=== PATIENT | male | born 1955 | race Two or more races ===

== ENCOUNTER 2018-06-18 18:51 | Inpatient (IN) | payer MEDICARE, MEDICAID ==
--- NOTE | 2018-06-18 19:16 | ED Physician Chart ---
ED Chief Complaint/HPI - Patient Information Date Seen:: 06/18/18 Time Seen:: 19:05 Chief Complaint:: increased agitation and psychosis History of Present Illness:: She was sent here for possible admission to [facility] because of increased agitation and psychosis at his [facility] facility. Allergies:: Allergies Allergy/AdvReac Type Severity Reaction Status Date / Time No Known Allergies Allergy Verified 06/18/18 18:59 Vitals:: Vital Signs - 8 hr 06/18/18 18:59 Temp 97.4 F HR 81 RR 22 BP 117/61 O2 Sat % 98 Historian:: Patient Review:: Transfer documents Reviewed ED Review of Systems - Review of Systems General/Constitutional: No fever, No chills, No weight loss, No weakness, No diaphoresis, No edema, No loss of appetite Skin: No skin lesions, No rash, No bruising Head: No headache, No light-headedness Eyes: No loss of vision, No pain, No diplopia ENT: No earache, No nasal drainage, No sore throat, No tinnitus Neck: No neck pain, No swelling, No thyromegaly, No stiffness, No mass noted Cardio Vascular: No chest pain, No palpitations, No PND, No orthopnea, No edema Pulmonary: No SOB, No cough, No sputum, No wheezing GI: No nausea, No vomiting, No diarrhea, No pain, No melena, No hematochezia, No constipation, No hematemesis G/U: No dysuria, No frequency, No hematuria Musculoskeletal: No bone or joint pain, No back pain, No muscle pain Endocrine: No polyuria, No polydipsia Psychiatric: Prior psych history, No depression, No anxiety, No suicidal ideation Hematopoietic: No bruising, No lymphadenopathy Allergic/Immuno: No urticaria, No angioedema Neurological: No syncope, No focal symptoms, No weakness, No paresthesia, No headache, No seizure, No dizziness, No confusion, No vertigo ED Past Medical History - Past Medical History Past Medical History: HTN, DM, Dyslipidemia, PUD/GERD, Other (end-stage renal disease on dialysis; atrial fibrillation hepatitis C; ischemic encephalopathy; anemia) Family History: HTN Social History: Non Smoker, No Alcohol Surgical History: other (dialysis shot) Psychiatricy History: Other (ischemic encephalopathy) Family Medical History - Family Member Mother History Unknown: Yes ED Physical Exam - Physical Examination General/Constitutional: Awake, Well-developed, well-nourished, Alert Other Gen/Cons comments:: Patient is alert and oriented to the correct year but states it is May 18. Head: Atraumatic Eyes: Lids, conjuctiva normal, PERRL Skin: Nl inspection, No rash, No skin lesions, No ecchymosis ENMT: External ears, nose nl, Oropharynx nl Other ENMT comments:: Edentulous Neck: No nuchal rigidity Respiratory: Nl effort/Exclusion, Clear to Auscultation Other Cardio Vascular comments:: Irregularly irregular rhythm with a 2/6 systolic murmur GI: No tenderness/rebounding/guarding, No organomegaly, No hernia, Normal BS's : No CVA tenderness Extremities: Normal digits & nails ED Labs/Radiology/EKG Results - Lab Results Results: Laboratory Results WBC 7.7 Th/cmm (4.8-10.8) 06/18/18 19:20 RBC 3.23 Mil/cmm (4.30-5.70) L 06/18/18 19:20 Hgb 10.6 gm/dL (12-16) L 06/18/18 19:20 Hct 31.4 % (41.0-60) L 06/18/18 19:20 MCV 97.5 fl (80-99) 06/18/18 19:20 MCH 32.8 pg (26.0-30.0) H 06/18/18 19:20 MCHC Differential 33.7 pg (28.0-36.0) 06/18/18 19:20 RDW 12.6 % (11.5-20.0) 06/18/18 19:20 Plt Count 195 Th/cmm (150-400) 06/18/18 19:20 MPV 6.4 fl 06/18/18 19:20 Neutrophils % 58.7 % (40.0-80.0) 06/18/18 19:20 Lymphocytes % 23.2 % (20.0-50.0) 06/18/18 19:20 Monocytes % 10.7 % (2.0-10.0) H 06/18/18 19:20 Eosinophils % 6.4 % (0.0-5.0) H 06/18/18 19:20 Basophils % 1.0 % (0.0-2.0) 06/18/18 19:20 Sodium 129 mEq/L (136-145) L 06/18/18 19:20 Potassium 4.0 mEq/L (3.5-5.1) 06/18/18 19:20 Chloride 90 mEq/L (98-107) L 06/18/18 19:20 Carbon Dioxide 28.0 mEq/L (21.0-31.0) 06/18/18 19:20 Anion Gap 15.0 (7.0-16.0) 06/18/18 19:20 BUN 27 mg/dL (7-25) H 06/18/18 19:20 Creatinine 6.4 mg/dL (0.7-1.3) H* 06/18/18 19:20 Est GFR ( Amer) 11.4 ml/min (>90) 06/18/18 19:20 Est GFR (Non-Af Amer) 9.4 ml/min 06/18/18 19:20 BUN/Creatinine Ratio 4.2 06/18/18 19:20 Glucose 166 mg/dL (70-105) H 06/18/18 19:20 Calcium 9.5 mg/dL (8.6-10.3) 06/18/18 19:20 Total Bilirubin 0.4 mg/dL (0.3-1.0) 06/18/18 19:20 AST 15 U/L (13-39) 06/18/18 19:20 ALT 19 U/L (7-52) 06/18/18 19:20 Alkaline Phosphatase 144 U/L (34-104) H 06/18/18 19:20 Total Protein 7.2 gm/dL (6.0-8.3) 06/18/18 19:20 Albumin 4.2 gm/dL (4.2-5.5) 06/18/18 19:20 Globulin 3.0 gm/dL 06/18/18 19:20 Albumin/Globulin Ratio 1.4 (1.0-1.8) 06/18/18 19:20 Triglycerides 131 mg/dL (<150) 06/18/18 19:20 Cholesterol 72 mg/dL (<200) 06/18/18 19:20 LDL Cholesterol Direct 28 mg/dL (75-193) L 06/18/18 19:20 HDL Cholesterol 24 mg/dL (23-92) 06/18/18 19:20 Salicylates < 25.0 mg/L (30.0-100.0) L 06/18/18 19:20 Acetaminophen < 10.0 ug/mL (10.0-30.0) L 06/18/18 19:20 Ethyl Alcohol < 10 mg/dL (0-10) 06/18/18 19:20 - EKG Interpretations Rate & Rhythm: atrial fibrillation with a rate of 71 [place]: borderline left axis deviation ED Septic Shock - . Is Septic Shock (SBP<90, OR Lactate>4 mmol\L) present?: No - <6hrs of presentation: Vital Signs: Vital Signs - 8 hr 06/18/18 18:59 Temp 97.4 F HR 81 RR 22 BP 117/61 O2 Sat % 98 ED Reassessment (Disposition) - Reassessment Reassessment Condition:: Unchanged - Diagnosis Diagnosis:: Increased agitation; renal failure on dialysis; atrial fibrillation with controlled ventricular rate; history of hepatitis C; history of ischemic encephalopathy - Patient Disposition Admitted to:: [facility] Admitting Medical Physician:: Yadi Mercedes Admitting Psych Physician:: Reid Wan Condition at Disposition:: Stable, Unchanged
[2018-06-18 19:30] LABS: % EOSINOPHILS 6.4 % (0.0-5.0); % LYMPHOCYTES 23.2 % (20.0-50.0); % MONOCYTES 10.7 % (2.0-10.0); % NEUTROPHILS 58.7 % (40.0-80.0); BASOPHILE ABSOLUTE 0.1 Th/cumm (0-0.2); EOSINOPHILE ABSOLUTE 0.5 Th/cmm (0.1-0.4); HEMATOCRIT 31.4 % (41.0-60); HEMOGLOBIN 10.6 gm/dL (12-16); LYMPHOCYTE ABSOLUTE 1.8 Th/cmm (1.5-3.0); MEAN CELL VOLUME 97.5 fl (80-99); MEAN CORPUSCULAR HEMOGLOBIN 32.8 pg (26.0-30.0); MEAN CORPUSCULAR HGB CONC 33.7 pg (28.0-36.0); MEAN PLATELET VOLUME 6.4 fl; MONOCYTE ABSOLUTE 0.8 Th/cmm (0.3-1.0); NEUTROPHILE ABSOLUTE 4.5 Th/cmm (1.8-8.0); PLATELET COUNT 195 Th/cmm (150-400); RED BLOOD COUNT 3.23 Mil/cmm (4.30-5.70); RED CELL DISTRIBUTION WIDTH 12.6 % (11.5-20.0); WHITE BLOOD COUNT 7.7 Th/cmm (4.8-10.8)
[2018-06-18 19:45] LABS: ACETAMINOPHEN < 10.0 ug/mL (10.0-30.0); ALB/GLOB RATIO 1.4 (1.0-1.8); ALBUMIN 4.2 gm/dL (4.2-5.5); ALKALINE PHOSPHATASE 144 U/L (34-104); BILIRUBIN,TOTAL 0.4 mg/dL (0.3-1.0); BUN - UREA NITROGEN 27 mg/dL (7-25); CALCIUM SERUM 9.5 mg/dL (8.6-10.3); CHLORIDE 90 mEq/L (98-107); CHOLESTEROL 72 mg/dL (<200); GFR AFRICAN-AMERICAN 11.4 ml/min (>90); GFR NON AFRICAN-AMERICAN 9.4 ml/min; GLUCOSE 166 mg/dL (70-105); HDL -HIGH DENSITY LIPOPROTEIN 24 mg/dL (23-92); SGOT 15 U/L (13-39); SGPT/ALT 19 U/L (7-52); SODIUM SERUM 129 mEq/L (136-145); TOTAL PROTEIN,SERUM 7.2 gm/dL (6.0-8.3); TRIGLYCERIDES 131 mg/dL (<150)
[2018-06-18 19:49] LABS: CREATININE - SERUM 6.4 mg/dL (0.7-1.3); SALICYLATES (ASPIRIN) < 25.0 mg/L (30.0-100.0)
[2018-06-18 21:38] VITALS: BP 125/72
[2018-06-18] MEDS ORDERED: Dextrose 50% 50 mL Abboject IVP PRN (22:05)
[2018-06-18] MEDS ORDERED: GLUCAGON HCl 1 MG KIT IM PRN (22:05)
[2018-06-19] MEDS: INSULIN LISPRO SLIDING SCALE 100 UNITS/ML UNIT SUBQ SCH ×4 (06:52→21:18)
[2018-06-19 06:54] LABS: % EOSINOPHILS 6.1 % (0.0-5.0); % LYMPHOCYTES 19.8 % (20.0-50.0); % MONOCYTES 9.2 % (2.0-10.0); % NEUTROPHILS 63.9 % (40.0-80.0); BASOPHILE ABSOLUTE 0.1 Th/cumm (0-0.2); EOSINOPHILE ABSOLUTE 0.5 Th/cmm (0.1-0.4); HEMOGLOBIN 10.9 gm/dL (12-16); LYMPHOCYTE ABSOLUTE 1.5 Th/cmm (1.5-3.0); MEAN CELL VOLUME 96.2 fl (80-99); MEAN CORPUSCULAR HEMOGLOBIN 32.8 pg (26.0-30.0); MEAN CORPUSCULAR HGB CONC 34.1 pg (28.0-36.0); MONOCYTE ABSOLUTE 0.7 Th/cmm (0.3-1.0); NEUTROPHILE ABSOLUTE 4.9 Th/cmm (1.8-8.0); PLATELET COUNT 172 Th/cmm (150-400); RED BLOOD COUNT 3.33 Mil/cmm (4.30-5.70); RED CELL DISTRIBUTION WIDTH 12.8 % (11.5-20.0); WHITE BLOOD COUNT 7.7 Th/cmm (4.8-10.8)
[2018-06-19 07:15] LABS: ANION GAP 15.4 (7.0-16.0); CALCIUM SERUM 9.7 mg/dL (8.6-10.3); CARBON DIOXIDE 27.9 mEq/L (21.0-31.0); GFR AFRICAN-AMERICAN 9.2 ml/min (>90); GFR NON AFRICAN-AMERICAN 7.6 ml/min; POTASSIUM SERUM 4.3 mEq/L (3.5-5.1)
[2018-06-19 08:38] LABS: CREATININE - SERUM 7.7 mg/dL (0.7-1.3)
[2018-06-19] MEDS ORDERED: Non-Formulary Item 1 EA (Carvedilol [Carvedilol] 25 MG) PO SCH (09:00)
[2018-06-19] MEDS ORDERED: Non-Formulary Item 1 EA (Cholecalciferol (Vitamin D3) [Vitamin D3] 1 CAP) PO SCH (09:00)
[2018-06-19] MEDS ORDERED: INSULIN DETEMIR 30 UNIT SQ SCH (09:00)
[2018-06-19] MEDS ORDERED: Non-Formulary Item 1 EA (Acetaminophen [Tylenol] 650 MG) PO SCH (09:00)
[2018-06-19] MEDS: Fish Oil 1,000 MG SGL PO SCH (09:41)
[2018-06-19] MEDS: Diltiazem CD 120 mg 24H PO SCH (09:41)
[2018-06-19] MEDS: Insulin Glargine 100 units/ml 10ml Vial SUBQ SCH (09:42)
--- NOTE | 2018-06-19 19:03 | History & Physical ---
ADMIT DATE: 06/19/2018 CHIEF COMPLAINT: Increasing agitation. HISTORY OF PRESENT ILLNESS: This is a 63-year-old male who was originally admitted from a senior living facility and was transferred to [facility] Emergency Room due to increase in agitation and psychosis and hence the patient was possibly transferred to senior Mental Health Unit, but unfortunately did not take dialysis. So, the patient was admitted to Med/Surg unit. REVIEW OF SYSTEMS: GENERAL: This is a 63-year-old male. No fever, no weakness, no headache, no dizziness. EYES: No eye pain, no blurring vision. NECK: No neck pain or nuchal rigidity. CHEST: No chest pain or palpitation. PULMONARY: No coughing. No shortness of breath. GASTROINTESTINAL: No abdominal pain, no constipation or diarrhea. MUSCULOSKELETAL: No joint pain. No muscle pain. SOCIAL HISTORY: The patient lives in a senior living facility prior to hospitalization. FAMILY HISTORY: Unremarkable. PAST SURGICAL HISTORY: Unremarkable. PSYCHIATRIC HISTORY: Includes psychosis. PAST MEDICAL HISTORY: Includes hypertension, atrial fibrillation, hyperlipidemia, vitamin D deficiency, gastroesophageal reflux disease, neuropathy, diabetes. PHYSICAL EXAMINATION: VITAL SIGNS: Temperature 97.2, heart rate 69, blood pressure 136/68, respiration 18, 99% on room air. GENERAL: This is a 63-year-old male that appears as stated in no acute distress. HEENT: Head is atraumatic, normocephalic. Eyes: Bilateral conjunctivae are clear. Bilateral pupils equal, round, reactive. NECK: Supple. No JVD. CARDIOVASCULAR: S1 and S2 without murmur. LUNGS: Clear to auscultation. GASTROINTESTINAL: Soft and nontender without guarding. Positive bowel sounds. MUSCULOSKELETAL: No clubbing. No cyanosis noted. ASSESSMENT: 1. Psychosis. 2. End-stage renal disease, hemodialysis dependent. 3. Hypertension. 4. Hyperlipidemia. 5. Atrial fibrillation. 6. Diabetes. PLAN: We will admit the patient to Psychiatric Unit. We will do medication reconciliation accordingly. We will consult with payment analyst and a psychiatrist. Treatment plans were discussed with the patient's nurse. Treatment plans were discussed with Dr. Mercedes. JOB# [id number]
[2018-06-19] MEDS: Apixaban 5 MG TABLET PO SCH (21:18)
[2018-06-19] MEDS: Atorvastatin Calcium 10 MG TAB PO SCH (21:18)
[2018-06-20] MEDS ORDERED: Albumin 25% 25gm/100mL 25 GM/100 ML BTL IV PRN
--- NOTE | 2018-06-20 02:01 | Consultation ---
DATE OF CONSULTATION: 06/19/2018 ATTENDING: Dr. Babs Mercedes. STORY EDITOR: John Luna MD HISTORY OF PRESENT ILLNESS: This is a 63-year-old male with past medical history of end-stage renal disease on hemodialysis, who was brought in because of aggressive behavior. A few hours prior to admission, the patient was manifesting aggressive/inappropriate behavior to female patient is in his facility. He was then brought to the Emergency Room. His white count was 7.7. Drug workup was negative. He has a history of end-stage renal disease on hemodialysis on Tuesdays, and Saturdays. PAST MEDICAL HISTORY: 1. End-stage renal disease, on hemodialysis. 2. Type 2 diabetes mellitus. 3. Essential hypertension. 4. Dyslipidemia. 5. GERD. 6. Chronic atrial fibrillation. 7. History of hepatitis C. 8. Anoxic encephalopathy. 9. Anemia of chronic kidney disease. 10. Combined systolic/diastolic congestive heart failure. 11. Cerebellar stroke syndrome. 12. Morbid obesity. 13. Diabetic neuropathy. 14. Depression. CURRENT MEDICATIONS: He is currently on acetaminophen, amlodipine, apixaban, atorvastatin, carvedilol, diltiazem, famotidine, fish oil, gabapentin, Ativan, paroxetine. ALLERGIES: No known drug allergies. SOCIAL HISTORY: Denied any history of alcohol or tobacco abuse. He is a retired editing computer publisher. FAMILY HISTORY: Noncontributory to present illness. REVIEW OF SYSTEMS: GENERAL: He has on and off weakness. Appetite had been fair. No fever or chills. HEENT: No mention of headaches or dizziness. CARDIORESPIRATORY: No chest pain, palpitations, diaphoresis, or cough. No shortness of breath. GASTROINTESTINAL: No nausea and vomiting, abdominal pain or cramping, hematemesis, melena, hematochezia, nor diarrhea. ENDOCRINE: He has a history of dyslipidemia as well as diabetes, but no thyroid abnormalities. MUSCULOSKELETAL: Multiple joint arthralgias. GENITOURINARY: History of kidney failure on hemodialysis for 5 years. No dysuria nor hematuria. NEUROPSYCHIATRIC: No syncopal episode. No seizure activity. He has diabetic neuropathy. PHYSICAL EXAMINATION: GENERAL: The patient is alert, comfortable on the obese side. VITAL SIGNS: Blood pressure is 128/70, pulse 61, temperature 97.8 degrees. SKIN: Good turgor, warm, no rash, no jaundice appreciated. HEENT: Head normocephalic, atraumatic. Eyes: Extraocular muscles intact. Pupils equal, round, reactive to light and accommodates. Anicteric sclerae. Pale conjunctivae. Nose, midline nasal septum. Mouth, moist mucosa, adequate dentition. NECK: Supple, no adenopathy, no thyromegaly, no bruits. Trachea palpated in the midline. CHEST AND CARDIOVASCULAR: S1, S2. No rub, murmur, nor gallop appreciated. Point of maximal impulse fifth intercostal space, left midclavicular line. No abdominal or femoral bruits appreciated. LUNGS: Equal expansion, no use of accessory muscles or supraclavicular retractions. Decreased breath sounds, few rhonchi, but no rales or wheezes appreciated. ABDOMEN: Obese, soft, positive for bowel sounds. No bruits either diastolic or systolic. No pulsatile masses. MUSCULOSKELETAL: No effusions present in his joints with limited range of motion. EXTREMITIES: No evidence of any edema, cyanosis or clubbing with palpable femoral, but unable to fully appreciate popliteal and dorsalis pedis pulses. He has a good bruit on his left forearm AV fistula. NEUROLOGIC: The patient is awake, verbal, motor is 5/5. Cranial nerves 3-12 intact. Sensory intact. LABORATORY DATA: Did reveal a white count of 7.7, hemoglobin 10.9, hematocrit 32, and platelets 172. Sodium 131, potassium 4.3, chloride 92, bicarbonate 27, BUN 32, creatinine 7.7, albumin 4.2, calcium 9.7. IMPRESSION: 1. End-stage renal disease, on hemodialysis. 2. Acute decompensation of psychosis. 3. Type 2 diabetes mellitus with chronic kidney disease. 4. Essential hypertension with chronic kidney disease. 5. Dyslipidemia. 6. Gastroesophageal reflux disease. 7. Chronic atrial fibrillation. 8. History of hepatitis C. 9. Anoxic encephalopathy. 10. Anemia of chronic kidney disease. 11. Generalized/toxic gas formation. 12. Cerebellar stroke syndrome. 13. Morbid obesity. 14. Diabetic neuropathy. 15. He has a history of depression. PLAN: 1. Hemodialysis today. 2. Follow up electrolytes as well as CBC. 3. Continue psych meds. JOB# [id number]
--- NOTE | 2018-06-20 05:17 | Consultation ---
DATE OF CONSULTATION: 06/19/2018 IDENTIFYING INFORMATION: The patient is a 63-year-old male. HISTORY OF PRESENT ILLNESS: The patient was sent here for possible admission to [facility] because of increasing agitation and psychosis at the [facility] facility. The patient is not a great historian. When I talked to him, he said that he has been hearing voices, has been hearing them for a long period of time and that they do not tell him to harm himself. He has been getting easily agitated. He reported that he moved to [facility] a month ago, he does not really like it there. He denies that he will harm himself or anybody. He believes this is the 19 of May. The patient however was able to tell me his age. The patient reported that he has been depressed for a long period of time. The patient denies any intent to harm anybody. PAST PSYCHIATRIC HISTORY: Depression. The patient is on dialysis, he has atrial fibrillation, therefore he was denied admission to [facility]. The patient has been on Paxil 20 mg daily. Never tried to harm himself. He said he was once in the hospital to be checked out. MEDICAL HISTORY: The patient is on dialysis. He has hyperlipidemia, high blood pressure, atrial fibrillation, GERD. He is a diabetic. Apparently, he has multiple medical problems as well. He also has hepatitis C, ischemic encephalopathy. ALLERGIES: He has no known drug allergies. MEDICATIONS: He is on Paxil 20 mg a day. FAMILY AND SOCIAL HISTORY: The patient reports he is , is not sure how many years, but he was for 10 years. He has one boy, 33 years of age. He has a girlfriend; however, he has been at the nursing facility for the last month. The patient has 14 years of education. He used to work as an wastewater engineer currently retired. The patient denies family psychotic disorder. MENTAL STATUS EXAMINATION: The patient is appropriately dressed, not well groomed. He is alert, unable to tell me the exact date, he believes this is 05/19/1917. He knew he is in the hospital, he is not sure why though; the patient was sent because of his agitation and hearing voices. The patient denies any intent to harm himself or anybody. He said he never tried to harm herself. Denies having any legal problems. His long-term memory is good for age and date of . Recent memory is poor, not sure of the exact events that led to him coming here. Insight about his illness is fair, he realizes there is a problem. Judgment is poor because of his psychosis. IMPRESSION: 1. Major depression, recurrent, with psychosis. 2. Medical diagnoses: As per medical doctor. RECOMMENDATION: I recommend to add Risperdal to his medication. Continue with Paxil. The patient needs to follow up with psychiatrist upon discharge. The patient denies any intent to harm himself or anybody. Thank you very much for allowing me to participate in the care of this most interesting gentleman. JOB# [id number] TONY
[2018-06-20] MEDS: INSULIN LISPRO SLIDING SCALE 100 UNITS/ML UNIT SUBQ SCH ×4 (06:42→21:14)
[2018-06-20 06:45] LABS: % BASOPHILS 0.6 % (0.0-2.0); % LYMPHOCYTES 16.7 % (20.0-50.0); % MONOCYTES 9.3 % (2.0-10.0); % NEUTROPHILS 68.4 % (40.0-80.0); EOSINOPHILE ABSOLUTE 0.4 Th/cmm (0.1-0.4); HEMATOCRIT 31.1 % (41.0-60); HEMOGLOBIN 10.6 gm/dL (12-16); LYMPHOCYTE ABSOLUTE 1.3 Th/cmm (1.5-3.0); MEAN CELL VOLUME 95.8 fl (80-99); MEAN CORPUSCULAR HEMOGLOBIN 32.8 pg (26.0-30.0); MEAN CORPUSCULAR HGB CONC 34.2 pg (28.0-36.0); MEAN PLATELET VOLUME 6.8 fl; MONOCYTE ABSOLUTE 0.7 Th/cmm (0.3-1.0); NEUTROPHILE ABSOLUTE 5.2 Th/cmm (1.8-8.0); PLATELET COUNT 171 Th/cmm (150-400); RED BLOOD COUNT 3.25 Mil/cmm (4.30-5.70); RED CELL DISTRIBUTION WIDTH 12.9 % (11.5-20.0); WHITE BLOOD COUNT 7.6 Th/cmm (4.8-10.8)
[2018-06-20 06:58] LABS: ANION GAP 14.1 (7.0-16.0); CALCIUM SERUM 9.4 mg/dL (8.6-10.3); CARBON DIOXIDE 28.6 mEq/L (21.0-31.0); GFR AFRICAN-AMERICAN 11.6 ml/min (>90); GFR NON AFRICAN-AMERICAN 9.6 ml/min; MAGNESIUM 2.3 mg/dL (1.9-2.7); PHOSPHOROUS 3.5 mg/dL (2.5-5.0); POTASSIUM SERUM 3.7 mEq/L (3.5-5.1)
[2018-06-20 07:31] LABS: CREATININE - SERUM 6.3 mg/dL (0.7-1.3)
[2018-06-20] MEDS: Diltiazem CD 120 mg 24H PO SCH (09:08)
[2018-06-20] MEDS: Fish Oil 1,000 MG SGL PO SCH (09:09)
[2018-06-20] MEDS: Insulin Glargine 100 units/ml 10ml Vial SUBQ SCH (09:35)
--- NOTE | 2018-06-20 12:12 | Internal Medicine Prog Note ---
Internal Medicine Subjective - Subjective Patient seen and examined:: chart reviewed Patient is:: awake, verbal, agitated, confused Per staff patient has:: no episodes of fall, confused (confused, irritble ) Internal Medicine Objective - Results Result Diagrams: 06/20/18 06:15 06/20/18 06:15 Recent Labs: Laboratory Last Values WBC 7.6 Th/cmm (4.8-10.8) 06/20/18 06:15 RBC 3.25 Mil/cmm (4.30-5.70) L 06/20/18 06:15 Hgb 10.6 gm/dL (12-16) L 06/20/18 06:15 Hct 31.1 % (41.0-60) L 06/20/18 06:15 MCV 95.8 fl (80-99) 06/20/18 06:15 MCH 32.8 pg (26.0-30.0) H 06/20/18 06:15 MCHC Differential 34.2 pg (28.0-36.0) 06/20/18 06:15 RDW 12.9 % (11.5-20.0) 06/20/18 06:15 Plt Count 171 Th/cmm (150-400) 06/20/18 06:15 MPV 6.8 fl 06/20/18 06:15 Neutrophils % 68.4 % (40.0-80.0) 06/20/18 06:15 Lymphocytes % 16.7 % (20.0-50.0) L 06/20/18 06:15 Monocytes % 9.3 % (2.0-10.0) 06/20/18 06:15 Eosinophils % 5.0 % (0.0-5.0) 06/20/18 06:15 Basophils % 0.6 % (0.0-2.0) 06/20/18 06:15 Sodium 134 mEq/L (136-145) L 06/20/18 06:15 Potassium 3.7 mEq/L (3.5-5.1) 06/20/18 06:15 Chloride 95 mEq/L (98-107) L 06/20/18 06:15 Carbon Dioxide 28.6 mEq/L (21.0-31.0) 06/20/18 06:15 Anion Gap 14.1 (7.0-16.0) 06/20/18 06:15 BUN 25 mg/dL (7-25) 06/20/18 06:15 Creatinine 6.3 mg/dL (0.7-1.3) H* 06/20/18 06:15 Est GFR ( Amer) 11.6 ml/min (>90) 06/20/18 06:15 Est GFR (Non-Af Amer) 9.6 ml/min 06/20/18 06:15 BUN/Creatinine Ratio 4.0 06/20/18 06:15 Glucose 101 mg/dL (70-105) 06/20/18 06:15 POC Glucose 175 MG/DL (70 - 105) H 06/20/18 11:36 Calcium 9.4 mg/dL (8.6-10.3) 06/20/18 06:15 Phosphorus 3.5 mg/dL (2.5-5.0) 06/20/18 06:15 Magnesium 2.3 mg/dL (1.9-2.7) 06/20/18 06:15 Total Bilirubin 0.4 mg/dL (0.3-1.0) 06/18/18 19:20 AST 15 U/L (13-39) 06/18/18 19:20 ALT 19 U/L (7-52) 06/18/18 19:20 Alkaline Phosphatase 144 U/L (34-104) H 06/18/18 19:20 Total Protein 7.2 gm/dL (6.0-8.3) 06/18/18 19:20 Albumin 4.2 gm/dL (4.2-5.5) 06/18/18 19:20 Globulin 3.0 gm/dL 06/18/18 19:20 Albumin/Globulin Ratio 1.4 (1.0-1.8) 06/18/18 19:20 Triglycerides 131 mg/dL (<150) 06/18/18 19:20 Cholesterol 72 mg/dL (<200) 06/18/18 19:20 LDL Cholesterol Direct 28 mg/dL (75-193) L 06/18/18 19:20 HDL Cholesterol 24 mg/dL (23-92) 06/18/18 19:20 TSH 2.58 uIU/ml (0.34-5.60) 06/18/18 19:20 Salicylates < 25.0 mg/L (30.0-100.0) L 06/18/18 19:20 Acetaminophen < 10.0 ug/mL (10.0-30.0) L 06/18/18 19:20 Ethyl Alcohol < 10 mg/dL (0-10) 06/18/18 19:20 RPR NONREACTIVE (NONREACTIVE) 06/18/18 19:20 - Physical Exam Vitals and I&O: Vital Signs Temp 97.1 F 06/20/18 09:01 Pulse 66 06/20/18 09:09 Resp 19 06/20/18 09:01 BP 115/70 06/20/18 09:09 Pulse Ox 99 06/20/18 09:01 Intake & Output 06/19/18 06/20/18 06/20/18 18:59 06:59 18:59 Intake Total 200 400 Balance 200 400 Weight (lbs) 118.388 kg 118.388 kg Intake: Oral 200 400 Other: # Voids 0 0 # Bowel Movements 1 1 Weight Source Bedscale Bedscale Active Medications: Current Medications Acetaminophen (Tylenol) 650 mg PO Q12H PRN PRN Reason: Pain (Mild) Stop: 08/17/18 22:02 Amlodipine Besylate (Norvasc) 10 mg PO DAILY [facility] Stop: 08/18/18 08:59 Last Admin: 06/20/18 09:09 Dose: 10 mg Atorvastatin Calcium (Lipitor) 10 mg PO HS [facility]; Protocol Stop: 08/18/18 20:59 Last Admin: 06/19/18 21:18 Dose: 10 mg Carvedilol (Coreg) 25 mg PO BID [facility] Stop: 08/18/18 08:59 Last Admin: 06/20/18 09:09 Dose: 25 mg Cholecalciferol (Vitamin D3) 1,000 iu PO DAILY [facility] Stop: 08/18/18 08:59 Last Admin: 06/20/18 09:09 Dose: 1,000 iu Dextrose (D50w) 50 ml IVP PRN PRN PRN Reason: Blood Glucose less than 70 Stop: 08/17/18 22:04 Dextrose (Glutose 40%) 18.75 gm PO PRN PRN PRN Reason: Blood Glucose less than 70 Stop: 08/17/18 22:04 Diltiazem HCl (Cardizem Cd) 120 mg PO DAILY [facility] Stop: 08/18/18 08:59 Last Admin: 06/20/18 09:08 Dose: 120 mg Docusate Sodium (Colace) 100 mg PO DAILY [facility] Stop: 08/18/18 08:59 Last Admin: 06/20/18 09:09 Dose: 100 mg Famotidine (Pepcid) 20 mg PO DAILY [facility] Stop: 08/18/18 08:59 Last Admin: 06/20/18 09:08 Dose: 20 mg Fish Oil ([place] 3) 1,000 mg PO DAILY [facility] Stop: 08/18/18 08:59 Last Admin: 06/20/18 09:09 Dose: 1,000 mg Gabapentin (Neurontin) 100 mg PO DAILY [facility] Stop: 08/18/18 08:59 Last Admin: 06/20/18 09:09 Dose: 100 mg Glucagon (Glucagen) 1 mg IM PRN PRN PRN Reason: Blood Glucose less than 70 Stop: 08/17/18 22:04 Albumin Human (Albuminar 25%) 25 gm in 100 mls @ 50 mls/hr IV PRN PRN PRN Reason: BP Support During HD Stop: 06/20/18 23:49 Insulin Glargine (Lantus Insulin) 30 units SUBQ QAM [facility] Stop: 08/18/18 08:59 Last Admin: 06/20/18 09:35 Dose: 30 units Insulin Human Lispro (Humalog Insulin Sliding Scale) 0 units SUBQ ACHS [facility]; Protocol Stop: 08/18/18 07:29 Last Admin: 06/20/18 11:45 Dose: 2 units Lorazepam (Ativan) 1 mg IVP Q4H PRN; Protocol PRN Reason: Agitation Stop: 08/17/18 22:08 Paroxetine HCl (Paxil) 20 mg PO DAILY [facility]; Protocol Stop: 08/18/18 08:59 Last Admin: 06/20/18 09:09 Dose: 20 mg Risperidone (Risperdal) 0.5 mg PO BID [facility]; Protocol Stop: 08/18/18 16:59 Last Admin: 06/20/18 09:09 Dose: 0.5 mg General: demented HEENT: NC/AT Neck: Supple Lungs: CTAB Cardiovascular: RRR, Normal S1 Abdomen: soft, non-tender Extremities: clear Internal Medicine Assmt/Plan - Assessment Assessment: psychosis esrd/hd htn hyperlipidemia a fib dm - Plan Plan: as per psych will monitor
--- NOTE | 2018-06-20 14:29 | Progress Notes ---
DATE: 06/20/2018 Case was discussed with staff of the patient, reviewed records. The patient is alert, continues to be depressed. He reported the voices are not prominent. He denies any current intent to harm himself or anybody. He is sleeping better, eating better. No side effects of the medication, no sedation, no nausea, no extrapyramidal symptoms. I started him on Risperdal yesterday. No side effects, no sedation, no nausea, no extrapyramidal symptoms. Thank you very much for allowing me to participate in the care of this most interesting gentleman. Dr goss will follow up with him tomorrow. JOB# [id number] TONY
[2018-06-20] MEDS: Apixaban 5 MG TABLET PO SCH (17:09)
--- NOTE | 2018-06-20 17:09 | General Progress Note ---
Subjective - Review of Systems Service Date: 06/20/18 Subjective: alert, more verbal, comfortable Objective - Results Result Diagrams: 06/20/18 06:15 06/20/18 06:15 Recent Labs: Laboratory Last Values WBC 7.6 Th/cmm (4.8-10.8) 06/20/18 06:15 RBC 3.25 Mil/cmm (4.30-5.70) L 06/20/18 06:15 Hgb 10.6 gm/dL (12-16) L 06/20/18 06:15 Hct 31.1 % (41.0-60) L 06/20/18 06:15 MCV 95.8 fl (80-99) 06/20/18 06:15 MCH 32.8 pg (26.0-30.0) H 06/20/18 06:15 MCHC Differential 34.2 pg (28.0-36.0) 06/20/18 06:15 RDW 12.9 % (11.5-20.0) 06/20/18 06:15 Plt Count 171 Th/cmm (150-400) 06/20/18 06:15 MPV 6.8 fl 06/20/18 06:15 Neutrophils % 68.4 % (40.0-80.0) 06/20/18 06:15 Lymphocytes % 16.7 % (20.0-50.0) L 06/20/18 06:15 Monocytes % 9.3 % (2.0-10.0) 06/20/18 06:15 Eosinophils % 5.0 % (0.0-5.0) 06/20/18 06:15 Basophils % 0.6 % (0.0-2.0) 06/20/18 06:15 Sodium 134 mEq/L (136-145) L 06/20/18 06:15 Potassium 3.7 mEq/L (3.5-5.1) 06/20/18 06:15 Chloride 95 mEq/L (98-107) L 06/20/18 06:15 Carbon Dioxide 28.6 mEq/L (21.0-31.0) 06/20/18 06:15 Anion Gap 14.1 (7.0-16.0) 06/20/18 06:15 BUN 25 mg/dL (7-25) 06/20/18 06:15 Creatinine 6.3 mg/dL (0.7-1.3) H* 06/20/18 06:15 Est GFR ( Amer) 11.6 ml/min (>90) 06/20/18 06:15 Est GFR (Non-Af Amer) 9.6 ml/min 06/20/18 06:15 BUN/Creatinine Ratio 4.0 06/20/18 06:15 Glucose 101 mg/dL (70-105) 06/20/18 06:15 POC Glucose 175 MG/DL (70 - 105) H 06/20/18 11:36 Calcium 9.4 mg/dL (8.6-10.3) 06/20/18 06:15 Phosphorus 3.5 mg/dL (2.5-5.0) 06/20/18 06:15 Magnesium 2.3 mg/dL (1.9-2.7) 06/20/18 06:15 Total Bilirubin 0.4 mg/dL (0.3-1.0) 06/18/18 19:20 AST 15 U/L (13-39) 06/18/18 19:20 ALT 19 U/L (7-52) 06/18/18 19:20 Alkaline Phosphatase 144 U/L (34-104) H 06/18/18 19:20 Total Protein 7.2 gm/dL (6.0-8.3) 06/18/18 19:20 Albumin 4.2 gm/dL (4.2-5.5) 06/18/18 19:20 Globulin 3.0 gm/dL 06/18/18 19:20 Albumin/Globulin Ratio 1.4 (1.0-1.8) 06/18/18 19:20 Triglycerides 131 mg/dL (<150) 06/18/18 19:20 Cholesterol 72 mg/dL (<200) 06/18/18 19:20 LDL Cholesterol Direct 28 mg/dL (75-193) L 06/18/18 19:20 HDL Cholesterol 24 mg/dL (23-92) 06/18/18 19:20 TSH 2.58 uIU/ml (0.34-5.60) 06/18/18 19:20 Salicylates < 25.0 mg/L (30.0-100.0) L 06/18/18 19:20 Acetaminophen < 10.0 ug/mL (10.0-30.0) L 06/18/18 19:20 Ethyl Alcohol < 10 mg/dL (0-10) 06/18/18 19:20 RPR NONREACTIVE (NONREACTIVE) 06/18/18 19:20 - Physical Exam Vitals and I&O: Vital Signs Temp 97.1 F 06/20/18 09:01 Pulse 66 06/20/18 09:09 Resp 19 06/20/18 09:01 BP 115/70 06/20/18 09:09 Pulse Ox 99 06/20/18 09:01 Intake & Output 06/19/18 06/20/18 06/20/18 18:59 06:59 18:59 Intake Total 200 400 Balance 200 400 Weight (lbs) 118.388 kg 118.388 kg Intake: Oral 200 400 Other: # Voids 0 0 # Bowel Movements 1 1 Weight Source Bedscale Bedscale Active Medications: Current Medications Acetaminophen (Tylenol) 650 mg PO Q12H PRN PRN Reason: Pain (Mild) Stop: 08/17/18 22:02 Amlodipine Besylate (Norvasc) 10 mg PO DAILY [facility] Stop: 08/18/18 08:59 Last Admin: 06/20/18 09:09 Dose: 10 mg Atorvastatin Calcium (Lipitor) 10 mg PO [facility]; Protocol Stop: 08/18/18 20:59 Last Admin: 06/19/18 21:18 Dose: 10 mg Carvedilol (Coreg) 25 mg PO BID [facility] Stop: 08/18/18 08:59 Last Admin: 06/20/18 09:09 Dose: 25 mg Cholecalciferol (Vitamin D3) 1,000 iu PO DAILY [facility] Stop: 08/18/18 08:59 Last Admin: 06/20/18 09:09 Dose: 1,000 iu Dextrose (D50w) 50 ml IVP PRN PRN PRN Reason: Blood Glucose less than 70 Stop: 08/17/18 22:04 Dextrose (Glutose 40%) 18.75 gm PO PRN PRN PRN Reason: Blood Glucose less than 70 Stop: 08/17/18 22:04 Diltiazem HCl (Cardizem Cd) 120 mg PO DAILY [facility] Stop: 08/18/18 08:59 Last Admin: 06/20/18 09:08 Dose: 120 mg Docusate Sodium (Colace) 100 mg PO DAILY [facility] Stop: 08/18/18 08:59 Last Admin: 06/20/18 09:09 Dose: 100 mg Famotidine (Pepcid) 20 mg PO DAILY [facility] Stop: 08/18/18 08:59 Last Admin: 06/20/18 09:08 Dose: 20 mg Fish Oil ([place] 3) 1,000 mg PO DAILY [facility] Stop: 08/18/18 08:59 Last Admin: 06/20/18 09:09 Dose: 1,000 mg Gabapentin (Neurontin) 100 mg PO DAILY [facility] Stop: 08/18/18 08:59 Last Admin: 06/20/18 09:09 Dose: 100 mg Glucagon (Glucagen) 1 mg IM PRN PRN PRN Reason: Blood Glucose less than 70 Stop: 08/17/18 22:04 Albumin Human (Albuminar 25%) 25 gm in 100 mls @ 50 mls/hr IV PRN PRN PRN Reason: BP Support During HD Stop: 06/20/18 23:49 Insulin Glargine (Lantus Insulin) 30 units SUBQ QAM [facility] Stop: 08/18/18 08:59 Last Admin: 06/20/18 09:35 Dose: 30 units Insulin Human Lispro (Humalog Insulin Sliding Scale) 0 units SUBQ ACHS [facility]; Protocol Stop: 08/18/18 07:29 Last Admin: 06/20/18 11:45 Dose: 2 units Lorazepam (Ativan) 1 mg IVP Q4H PRN; Protocol PRN Reason: Agitation Stop: 08/17/18 22:08 Paroxetine HCl (Paxil) 20 mg PO DAILY [facility]; Protocol Stop: 08/18/18 08:59 Last Admin: 06/20/18 09:09 Dose: 20 mg Risperidone (Risperdal) 0.5 mg PO BID [facility]; Protocol Stop: 08/18/18 16:59 Last Admin: 06/20/18 09:09 Dose: 0.5 mg General: Alert, No acute distress HEENT: Atraumatic, Mucous membr. 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 fib Hep C - Plan Plan: Lab - Result Diagrams 06/20/18 06:15 06/20/18 06:15 Current Medications Acetaminophen (Tylenol) 650 mg PO Q12H PRN PRN Reason: Pain (Mild) Stop: 08/17/18 22:02 Amlodipine Besylate (Norvasc) 10 mg PO DAILY [facility] Stop: 08/18/18 08:59 Last Admin: 06/20/18 09:09 Dose: 10 mg Atorvastatin Calcium (Lipitor) 10 mg PO HS [facility]; Protocol Stop: 08/18/18 20:59 Last Admin: 06/19/18 21:18 Dose: 10 mg Carvedilol (Coreg) 25 mg PO BID [facility] Stop: 08/18/18 08:59 Last Admin: 06/20/18 09:09 Dose: 25 mg Cholecalciferol (Vitamin D3) 1,000 iu PO DAILY [facility] Stop: 08/18/18 08:59 Last Admin: 06/20/18 09:09 Dose: 1,000 iu Dextrose (D50w) 50 ml IVP PRN PRN PRN Reason: Blood Glucose less than 70 Stop: 08/17/18 22:04 Dextrose (Glutose 40%) 18.75 gm PO PRN PRN PRN Reason: Blood Glucose less than 70 Stop: 08/17/18 22:04 Diltiazem HCl (Cardizem Cd) 120 mg PO DAILY [facility] Stop: 08/18/18 08:59 Last Admin: 06/20/18 09:08 Dose: 120 mg Docusate Sodium (Colace) 100 mg PO DAILY [facility] Stop: 08/18/18 08:59 Last Admin: 06/20/18 09:09 Dose: 100 mg Famotidine (Pepcid) 20 mg PO DAILY [facility] Stop: 08/18/18 08:59 Last Admin: 06/20/18 09:08 Dose: 20 mg Fish Oil ([place] 3) 1,000 mg PO DAILY [facility] Stop: 08/18/18 08:59 Last Admin: 06/20/18 09:09 Dose: 1,000 mg Gabapentin (Neurontin) 100 mg PO DAILY [facility] Stop: 08/18/18 08:59 Last Admin: 06/20/18 09:09 Dose: 100 mg Glucagon (Glucagen) 1 mg IM PRN PRN PRN Reason: Blood Glucose less than 70 Stop: 08/17/18 22:04 Albumin Human (Albuminar 25%) 25 gm in 100 mls @ 50 mls/hr IV PRN PRN PRN Reason: BP Support During HD Stop: 06/20/18 23:49 Insulin Glargine (Lantus Insulin) 30 units SUBQ QAM [facility] Stop: 08/18/18 08:59 Last Admin: 06/20/18 09:35 Dose: 30 units Insulin Human Lispro (Humalog Insulin Sliding Scale) 0 units SUBQ ACHS [facility]; Protocol Stop: 08/18/18 07:29 Last Admin: 06/20/18 11:45 Dose: 2 units Lorazepam (Ativan) 1 mg IVP Q4H PRN; Protocol PRN Reason: Agitation Stop: 08/17/18 22:08 Paroxetine HCl (Paxil) 20 mg PO DAILY [facility]; Protocol Stop: 08/18/18 08:59 Last Admin: 06/20/18 09:09 Dose: 20 mg Risperidone (Risperdal) 0.5 mg PO BID [facility]; Protocol Stop: 08/18/18 16:59 Last Admin: 06/20/18 09:09 Dose: 0.5 mg Lab - Result Diagrams 06/20/18 06:15 06/20/18 06:15 pt. was dialyzed yesterday & tolerated it well continue psych meds
[2018-06-20] MEDS: Atorvastatin Calcium 10 MG TAB PO SCH (21:15)
[2018-06-21] MEDS: INSULIN LISPRO SLIDING SCALE 100 UNITS/ML UNIT SUBQ SCH ×4 (06:44→22:08)
[2018-06-21] MEDS: Insulin Glargine 100 units/ml 10ml Vial SUBQ SCH (08:45)
[2018-06-21] MEDS: Fish Oil 1,000 MG SGL PO SCH (08:47)
[2018-06-21] MEDS: Diltiazem CD 120 mg 24H PO SCH (08:49)
--- NOTE | 2018-06-21 14:02 | General Progress Note ---
Subjective - Review of Systems Service Date: 06/21/18 Subjective: alert, more verbal, comfortable Objective - Results Result Diagrams: 06/20/18 06:15 06/20/18 06:15 Recent Labs: Laboratory Last Values WBC 7.6 Th/cmm (4.8-10.8) 06/20/18 06:15 RBC 3.25 Mil/cmm (4.30-5.70) L 06/20/18 06:15 Hgb 10.6 gm/dL (12-16) L 06/20/18 06:15 Hct 31.1 % (41.0-60) L 06/20/18 06:15 MCV 95.8 fl (80-99) 06/20/18 06:15 MCH 32.8 pg (26.0-30.0) H 06/20/18 06:15 MCHC Differential 34.2 pg (28.0-36.0) 06/20/18 06:15 RDW 12.9 % (11.5-20.0) 06/20/18 06:15 Plt Count 171 Th/cmm (150-400) 06/20/18 06:15 MPV 6.8 fl 06/20/18 06:15 Neutrophils % 68.4 % (40.0-80.0) 06/20/18 06:15 Lymphocytes % 16.7 % (20.0-50.0) L 06/20/18 06:15 Monocytes % 9.3 % (2.0-10.0) 06/20/18 06:15 Eosinophils % 5.0 % (0.0-5.0) 06/20/18 06:15 Basophils % 0.6 % (0.0-2.0) 06/20/18 06:15 Sodium 134 mEq/L (136-145) L 06/20/18 06:15 Potassium 3.7 mEq/L (3.5-5.1) 06/20/18 06:15 Chloride 95 mEq/L (98-107) L 06/20/18 06:15 Carbon Dioxide 28.6 mEq/L (21.0-31.0) 06/20/18 06:15 Anion Gap 14.1 (7.0-16.0) 06/20/18 06:15 BUN 25 mg/dL (7-25) 06/20/18 06:15 Creatinine 6.3 mg/dL (0.7-1.3) H* 06/20/18 06:15 Est GFR ( Amer) 11.6 ml/min (>90) 06/20/18 06:15 Est GFR (Non-Af Amer) 9.6 ml/min 06/20/18 06:15 BUN/Creatinine Ratio 4.0 06/20/18 06:15 Glucose 101 mg/dL (70-105) 06/20/18 06:15 POC Glucose 189 MG/DL (70 - 105) H 06/21/18 10:58 Calcium 9.4 mg/dL (8.6-10.3) 06/20/18 06:15 Phosphorus 3.5 mg/dL (2.5-5.0) 06/20/18 06:15 Magnesium 2.3 mg/dL (1.9-2.7) 06/20/18 06:15 Total Bilirubin 0.4 mg/dL (0.3-1.0) 06/18/18 19:20 AST 15 U/L (13-39) 06/18/18 19:20 ALT 19 U/L (7-52) 06/18/18 19:20 Alkaline Phosphatase 144 U/L (34-104) H 06/18/18 19:20 Total Protein 7.2 gm/dL (6.0-8.3) 06/18/18 19:20 Albumin 4.2 gm/dL (4.2-5.5) 06/18/18 19:20 Globulin 3.0 gm/dL 06/18/18 19:20 Albumin/Globulin Ratio 1.4 (1.0-1.8) 06/18/18 19:20 Triglycerides 131 mg/dL (<150) 06/18/18 19:20 Cholesterol 72 mg/dL (<200) 06/18/18 19:20 LDL Cholesterol Direct 28 mg/dL (75-193) L 06/18/18 19:20 HDL Cholesterol 24 mg/dL (23-92) 06/18/18 19:20 TSH 2.58 uIU/ml (0.34-5.60) 06/18/18 19:20 Salicylates < 25.0 mg/L (30.0-100.0) L 06/18/18 19:20 Acetaminophen < 10.0 ug/mL (10.0-30.0) L 06/18/18 19:20 Ethyl Alcohol < 10 mg/dL (0-10) 06/18/18 19:20 RPR NONREACTIVE (NONREACTIVE) 06/18/18 19:20 - Physical Exam Vitals and I&O: Vital Signs Temp 97.2 F 06/21/18 11:24 Pulse 63 06/21/18 11:24 Resp 19 06/21/18 11:24 BP 115/71 06/21/18 11:24 Pulse Ox 100 06/21/18 11:24 Intake & Output 06/20/18 06/21/18 06/21/18 18:59 06:59 18:59 Intake Total 850 300 Output Total 0 Balance 850 300 Weight (lbs) 116.12 kg 116.12 kg Intake: Oral 850 300 Output: Urine 0 Stool 0 Other: # Voids 0 # Bowel Movements 2 Weight Source Bedscale Bedscale Active Medications: Current Medications Acetaminophen (Tylenol) 650 mg PO Q12H PRN PRN Reason: Pain (Mild) Stop: 08/17/18 22:02 Amlodipine Besylate (Norvasc) 10 mg PO DAILY [facility] Stop: 08/18/18 08:59 Last Admin: 06/21/18 08:50 Dose: 10 mg Atorvastatin Calcium (Lipitor) 10 mg PO HS [facility]; Protocol Stop: 08/18/18 20:59 Last Admin: 06/20/18 21:15 Dose: 10 mg Carvedilol (Coreg) 25 mg PO BID [facility] Stop: 08/18/18 08:59 Last Admin: 06/21/18 08:39 Dose: Not Given Cholecalciferol (Vitamin D3) 1,000 iu PO DAILY [facility] Stop: 08/18/18 08:59 Last Admin: 06/21/18 08:49 Dose: 1,000 iu Dextrose (D50w) 50 ml IVP PRN PRN PRN Reason: Blood Glucose less than 70 Stop: 08/17/18 22:04 Dextrose (Glutose 40%) 18.75 gm PO PRN PRN PRN Reason: Blood Glucose less than 70 Stop: 08/17/18 22:04 Diltiazem HCl (Cardizem Cd) 120 mg PO DAILY [facility] Stop: 08/18/18 08:59 Last Admin: 06/21/18 08:49 Dose: 120 mg Docusate Sodium (Colace) 100 mg PO DAILY [facility] Stop: 08/18/18 08:59 Last Admin: 06/21/18 08:46 Dose: 100 mg Famotidine (Pepcid) 20 mg PO DAILY [facility] Stop: 08/18/18 08:59 Last Admin: 06/21/18 08:49 Dose: 20 mg Fish Oil ([place] 3) 1,000 mg PO DAILY [facility] Stop: 08/18/18 08:59 Last Admin: 06/21/18 08:47 Dose: 1,000 mg Gabapentin (Neurontin) 100 mg PO DAILY [facility] Stop: 08/18/18 08:59 Last Admin: 06/21/18 08:47 Dose: 100 mg Glucagon (Glucagen) 1 mg IM PRN PRN PRN Reason: Blood Glucose less than 70 Stop: 08/17/18 22:04 Insulin Glargine (Lantus Insulin) 30 units SUBQ QAM [facility] Stop: 08/18/18 08:59 Last Admin: 06/21/18 08:45 Dose: 30 units Insulin Human Lispro (Humalog Insulin Sliding Scale) 0 units SUBQ ACHS [facility]; Protocol Stop: 08/18/18 07:29 Last Admin: 06/21/18 11:21 Dose: 2 units Lorazepam (Ativan) 1 mg IVP Q4H PRN; Protocol PRN Reason: Agitation Stop: 08/17/18 22:08 Paroxetine HCl (Paxil) 20 mg PO DAILY [facility]; Protocol Stop: 08/18/18 08:59 Last Admin: 06/21/18 08:47 Dose: 20 mg Risperidone (Risperdal) 0.5 mg PO BID [facility]; Protocol Stop: 08/18/18 16:59 Last Admin: 06/21/18 08:47 Dose: 0.5 mg Sevelamer Carbonate (Renvela) 2,400 mg PO TIDWM [facility] Stop: 08/20/18 07:59 Last Admin: 06/21/18 11:23 Dose: 2,400 mg Trazodone HCl (Desyrel) 50 mg PO HS [facility]; Protocol Stop: 08/19/18 20:59 Last Admin: 06/20/18 22:35 Dose: Not Given General: Alert, No acute distress HEENT: Atraumatic, Mucous membr. 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 fib Hep C - Plan Plan: Lab - Result Diagrams 06/20/18 06:15 06/20/18 06:15 Current Medications Acetaminophen (Tylenol) 650 mg PO Q12H PRN PRN Reason: Pain (Mild) Stop: 08/17/18 22:02 Amlodipine Besylate (Norvasc) 10 mg PO DAILY [facility] Stop: 08/18/18 08:59 Last Admin: 06/20/18 09:09 Dose: 10 mg Atorvastatin Calcium (Lipitor) 10 mg PO HS [facility]; Protocol Stop: 08/18/18 20:59 Last Admin: 06/19/18 21:18 Dose: 10 mg Carvedilol (Coreg) 25 mg PO BID [facility] Stop: 08/18/18 08:59 Last Admin: 06/20/18 09:09 Dose: 25 mg Cholecalciferol (Vitamin D3) 1,000 iu PO DAILY [facility] Stop: 08/18/18 08:59 Last Admin: 06/20/18 09:09 Dose: 1,000 iu Dextrose (D50w) 50 ml IVP PRN PRN PRN Reason: Blood Glucose less than 70 Stop: 08/17/18 22:04 Dextrose (Glutose 40%) 18.75 gm PO PRN PRN PRN Reason: Blood Glucose less than 70 Stop: 08/17/18 22:04 Diltiazem HCl (Cardizem Cd) 120 mg PO DAILY [facility] Stop: 08/18/18 08:59 Last Admin: 06/20/18 09:08 Dose: 120 mg Docusate Sodium (Colace) 100 mg PO DAILY [facility] Stop: 08/18/18 08:59 Last Admin: 06/20/18 09:09 Dose: 100 mg Famotidine (Pepcid) 20 mg PO DAILY [facility] Stop: 08/18/18 08:59 Last Admin: 06/20/18 09:08 Dose: 20 mg Fish Oil ([place] 3) 1,000 mg PO DAILY [facility] Stop: 08/18/18 08:59 Last Admin: 06/20/18 09:09 Dose: 1,000 mg Gabapentin (Neurontin) 100 mg PO DAILY [facility] Stop: 08/18/18 08:59 Last Admin: 06/20/18 09:09 Dose: 100 mg Glucagon (Glucagen) 1 mg IM PRN PRN PRN Reason: Blood Glucose less than 70 Stop: 08/17/18 22:04 Albumin Human (Albuminar 25%) 25 gm in 100 mls @ 50 mls/hr IV PRN PRN PRN Reason: BP Support During HD Stop: 06/20/18 23:49 Insulin Glargine (Lantus Insulin) 30 units SUBQ QAM [facility] Stop: 08/18/18 08:59 Last Admin: 06/20/18 09:35 Dose: 30 units Insulin Human Lispro (Humalog Insulin Sliding Scale) 0 units SUBQ ACHS [facility]; Protocol Stop: 08/18/18 07:29 Last Admin: 06/20/18 11:45 Dose: 2 units Lorazepam (Ativan) 1 mg IVP Q4H PRN; Protocol PRN Reason: Agitation Stop: 08/17/18 22:08 Paroxetine HCl (Paxil) 20 mg PO DAILY [facility]; Protocol Stop: 08/18/18 08:59 Last Admin: 06/20/18 09:09 Dose: 20 mg Risperidone (Risperdal) 0.5 mg PO BID [facility]; Protocol Stop: 08/18/18 16:59 Last Admin: 06/20/18 09:09 Dose: 0.5 mg Lab - Result Diagrams 06/20/18 06:15 06/20/18 06:15 schedule for HD in am continue psych meds
[2018-06-21] MEDS: Apixaban 5 MG TABLET PO SCH (16:21)
--- NOTE | 2018-06-21 20:58 | Internal Medicine Prog Note ---
Internal Medicine Subjective - Subjective Service Date: 06/21/18 Patient seen and examined:: with staff Patient is:: awake, verbal, agitated, confused Patient Complaints of:: other (Inappropriate behavior.) Per staff patient has:: no adverse event, no episodes of fall, confused ( confused, irritble ) Internal Medicine Objective - Results Result Diagrams: 06/20/18 06:15 06/20/18 06:15 Recent Labs: Laboratory Last Values WBC 7.6 Th/cmm (4.8-10.8) 06/20/18 06:15 RBC 3.25 Mil/cmm (4.30-5.70) L 06/20/18 06:15 Hgb 10.6 gm/dL (12-16) L 06/20/18 06:15 Hct 31.1 % (41.0-60) L 06/20/18 06:15 MCV 95.8 fl (80-99) 06/20/18 06:15 MCH 32.8 pg (26.0-30.0) H 06/20/18 06:15 MCHC Differential 34.2 pg (28.0-36.0) 06/20/18 06:15 RDW 12.9 % (11.5-20.0) 06/20/18 06:15 Plt Count 171 Th/cmm (150-400) 06/20/18 06:15 MPV 6.8 fl 06/20/18 06:15 Neutrophils % 68.4 % (40.0-80.0) 06/20/18 06:15 Lymphocytes % 16.7 % (20.0-50.0) L 06/20/18 06:15 Monocytes % 9.3 % (2.0-10.0) 06/20/18 06:15 Eosinophils % 5.0 % (0.0-5.0) 06/20/18 06:15 Basophils % 0.6 % (0.0-2.0) 06/20/18 06:15 Sodium 134 mEq/L (136-145) L 06/20/18 06:15 Potassium 3.7 mEq/L (3.5-5.1) 06/20/18 06:15 Chloride 95 mEq/L (98-107) L 06/20/18 06:15 Carbon Dioxide 28.6 mEq/L (21.0-31.0) 06/20/18 06:15 Anion Gap 14.1 (7.0-16.0) 06/20/18 06:15 BUN 25 mg/dL (7-25) 06/20/18 06:15 Creatinine 6.3 mg/dL (0.7-1.3) H* 06/20/18 06:15 Est GFR ( Amer) 11.6 ml/min (>90) 06/20/18 06:15 Est GFR (Non-Af Amer) 9.6 ml/min 06/20/18 06:15 BUN/Creatinine Ratio 4.0 06/20/18 06:15 Glucose 101 mg/dL (70-105) 06/20/18 06:15 POC Glucose 146 MG/DL (70 - 105) H 06/21/18 15:59 Calcium 9.4 mg/dL (8.6-10.3) 06/20/18 06:15 Phosphorus 3.5 mg/dL (2.5-5.0) 06/20/18 06:15 Magnesium 2.3 mg/dL (1.9-2.7) 06/20/18 06:15 Total Bilirubin 0.4 mg/dL (0.3-1.0) 06/18/18 19:20 AST 15 U/L (13-39) 06/18/18 19:20 ALT 19 U/L (7-52) 06/18/18 19:20 Alkaline Phosphatase 144 U/L (34-104) H 06/18/18 19:20 Total Protein 7.2 gm/dL (6.0-8.3) 06/18/18 19:20 Albumin 4.2 gm/dL (4.2-5.5) 06/18/18 19:20 Globulin 3.0 gm/dL 06/18/18 19:20 Albumin/Globulin Ratio 1.4 (1.0-1.8) 06/18/18 19:20 Triglycerides 131 mg/dL (<150) 06/18/18 19:20 Cholesterol 72 mg/dL (<200) 06/18/18 19:20 LDL Cholesterol Direct 28 mg/dL (75-193) L 06/18/18 19:20 HDL Cholesterol 24 mg/dL (23-92) 06/18/18 19:20 TSH 2.58 uIU/ml (0.34-5.60) 06/18/18 19:20 Salicylates < 25.0 mg/L (30.0-100.0) L 06/18/18 19:20 Acetaminophen < 10.0 ug/mL (10.0-30.0) L 06/18/18 19:20 Ethyl Alcohol < 10 mg/dL (0-10) 06/18/18 19:20 RPR NONREACTIVE (NONREACTIVE) 06/18/18 19:20 - Physical Exam Vitals and I&O: Vital Signs Temp 98.4 F 06/21/18 20:00 Pulse 67 06/21/18 20:00 Resp 20 06/21/18 20:00 BP 112/60 06/21/18 20:00 Pulse Ox 100 06/21/18 20:00 Intake & Output 06/21/18 06/21/18 06/22/18 06:59 18:59 06:59 Intake Total 300 600 Output Total 0 0 Balance 300 600 Weight (lbs) 116.12 kg 116.12 kg Intake: Oral 300 600 Output: Urine 0 0 Stool 0 Other: # Voids 0 # Bowel Movements 0 Weight Source Bedscale Bedscale Active Medications: Current Medications Acetaminophen (Tylenol) 650 mg PO Q12H PRN PRN Reason: Pain (Mild) Stop: 08/17/18 22:02 Amlodipine Besylate (Norvasc) 10 mg PO DAILY [facility] Stop: 08/18/18 08:59 Last Admin: 06/21/18 08:50 Dose: 10 mg Atorvastatin Calcium (Lipitor) 10 mg PO HS [facility]; Protocol Stop: 08/18/18 20:59 Last Admin: 06/20/18 21:15 Dose: 10 mg Carvedilol (Coreg) 25 mg PO BID [facility] Stop: 08/18/18 08:59 Last Admin: 06/21/18 16:12 Dose: Not Given Cholecalciferol (Vitamin D3) 1,000 iu PO DAILY [facility] Stop: 08/18/18 08:59 Last Admin: 06/21/18 08:49 Dose: 1,000 iu Dextrose (D50w) 50 ml IVP PRN PRN PRN Reason: Blood Glucose less than 70 Stop: 08/17/18 22:04 Dextrose (Glutose 40%) 18.75 gm PO PRN PRN PRN Reason: Blood Glucose less than 70 Stop: 08/17/18 22:04 Diltiazem HCl (Cardizem Cd) 120 mg PO DAILY [facility] Stop: 08/18/18 08:59 Last Admin: 06/21/18 08:49 Dose: 120 mg Docusate Sodium (Colace) 100 mg PO DAILY [facility] Stop: 08/18/18 08:59 Last Admin: 06/21/18 08:46 Dose: 100 mg Famotidine (Pepcid) 20 mg PO DAILY [facility] Stop: 08/18/18 08:59 Last Admin: 06/21/18 08:49 Dose: 20 mg Fish Oil (Couch 3) 1,000 mg PO DAILY [facility] Stop: 08/18/18 08:59 Last Admin: 06/21/18 08:47 Dose: 1,000 mg Gabapentin (Neurontin) 100 mg PO DAILY [facility] Stop: 08/18/18 08:59 Last Admin: 06/21/18 08:47 Dose: 100 mg Glucagon (Glucagen) 1 mg IM PRN PRN PRN Reason: Blood Glucose less than 70 Stop: 08/17/18 22:04 Insulin Glargine (Lantus Insulin) 30 units SUBQ QAM [facility] Stop: 08/18/18 08:59 Last Admin: 06/21/18 08:45 Dose: 30 units Insulin Human Lispro (Humalog Insulin Sliding Scale) 0 units SUBQ ACHS [facility]; Protocol Stop: 08/18/18 07:29 Last Admin: 06/21/18 16:04 Dose: Not Given Lorazepam (Ativan) 1 mg IVP Q4H PRN; Protocol PRN Reason: Agitation Stop: 08/17/18 22:08 Paroxetine HCl (Paxil) 20 mg PO DAILY [facility]; Protocol Stop: 08/18/18 08:59 Last Admin: 06/21/18 08:47 Dose: 20 mg Risperidone (Risperdal) 0.5 mg PO BID [facility]; Protocol Stop: 08/18/18 16:59 Last Admin: 06/21/18 16:21 Dose: 0.5 mg Sevelamer Carbonate (Renvela) 2,400 mg PO TIDWM [facility] Stop: 08/20/18 07:59 Last Admin: 06/21/18 16:21 Dose: 2,400 mg Trazodone HCl (Desyrel) 50 mg PO HS [facility]; Protocol Stop: 08/19/18 20:59 Last Admin: 06/20/18 22:35 Dose: Not Given Physical Exam: 63 y/o male patient is agitated easily and has inappropriate behavior. General: demented HEENT: NC/AT Neck: Supple Lungs: CTAB Cardiovascular: RRR, Normal S1 Abdomen: soft, non-tender Extremities: clear Neurological: no change Internal Medicine Assmt/Plan - Assessment Assessment: psychosis esrd/hd htn hyperlipidemia a fib dm - Plan Plan: as per psych will monitor Nutritional Asmnt/Malnutr-PDOC - Dietary Evaluation Malnutrition Findings (Please click <Entered> for more info): see orders.
[2018-06-21] MEDS: Atorvastatin Calcium 10 MG TAB PO SCH (21:07)
--- NOTE | 2018-06-22 00:56 | Progress Notes ---
DATE: 06/21/2018 SUBJECTIVE: The patient is currently in the hospital, noted to have history of depression, voices perceptual disturbances, seen by Dr. Mchperson yesterday, Risperdal started. The patient is generally calm at this time. Originally seen by Dr. Mcpherson on 06/19/2018. History of mental illness, voices perceptual disturbances, voices were apparently not well controlled. Concern is for major depression with psychosis versus schizophrenia. Poor sleep. Poor appetite. ASSESSMENT: The patient remains symptomatic, ongoing perceptual disturbances. PLAN: We will continue to monitor, continue to titrate Risperdal. The patient may benefit from later transfer to [facility]# [id number]
[2018-06-22] MEDS: INSULIN LISPRO SLIDING SCALE 100 UNITS/ML UNIT SUBQ SCH ×4 (07:28→21:02)
[2018-06-22] MEDS: Diltiazem CD 120 mg 24H PO SCH (08:17)
[2018-06-22] MEDS: Insulin Glargine 100 units/ml 10ml Vial SUBQ SCH (08:26)
[2018-06-22] MEDS: Fish Oil 1,000 MG SGL PO SCH (08:29)
--- NOTE | 2018-06-22 13:40 | General Progress Note ---
Subjective - Review of Systems Service Date: 06/22/18 Subjective: alert, more verbal, comfortable Objective - Results Result Diagrams: 06/20/18 06:15 06/20/18 06:15 Recent Labs: Laboratory Last Values WBC 7.6 Th/cmm (4.8-10.8) 06/20/18 06:15 RBC 3.25 Mil/cmm (4.30-5.70) L 06/20/18 06:15 Hgb 10.6 gm/dL (12-16) L 06/20/18 06:15 Hct 31.1 % (41.0-60) L 06/20/18 06:15 MCV 95.8 fl (80-99) 06/20/18 06:15 MCH 32.8 pg (26.0-30.0) H 06/20/18 06:15 MCHC Differential 34.2 pg (28.0-36.0) 06/20/18 06:15 RDW 12.9 % (11.5-20.0) 06/20/18 06:15 Plt Count 171 Th/cmm (150-400) 06/20/18 06:15 MPV 6.8 fl 06/20/18 06:15 Neutrophils % 68.4 % (40.0-80.0) 06/20/18 06:15 Lymphocytes % 16.7 % (20.0-50.0) L 06/20/18 06:15 Monocytes % 9.3 % (2.0-10.0) 06/20/18 06:15 Eosinophils % 5.0 % (0.0-5.0) 06/20/18 06:15 Basophils % 0.6 % (0.0-2.0) 06/20/18 06:15 Sodium 134 mEq/L (136-145) L 06/20/18 06:15 Potassium 3.7 mEq/L (3.5-5.1) 06/20/18 06:15 Chloride 95 mEq/L (98-107) L 06/20/18 06:15 Carbon Dioxide 28.6 mEq/L (21.0-31.0) 06/20/18 06:15 Anion Gap 14.1 (7.0-16.0) 06/20/18 06:15 BUN 25 mg/dL (7-25) 06/20/18 06:15 Creatinine 6.3 mg/dL (0.7-1.3) H* 06/20/18 06:15 Est GFR ( Amer) 11.6 ml/min (>90) 06/20/18 06:15 Est GFR (Non-Af Amer) 9.6 ml/min 06/20/18 06:15 BUN/Creatinine Ratio 4.0 06/20/18 06:15 Glucose 101 mg/dL (70-105) 06/20/18 06:15 POC Glucose 197 MG/DL (70 - 105) H 06/22/18 10:59 Calcium 9.4 mg/dL (8.6-10.3) 06/20/18 06:15 Phosphorus 3.5 mg/dL (2.5-5.0) 06/20/18 06:15 Magnesium 2.3 mg/dL (1.9-2.7) 06/20/18 06:15 Total Bilirubin 0.4 mg/dL (0.3-1.0) 06/18/18 19:20 AST 15 U/L (13-39) 06/18/18 19:20 ALT 19 U/L (7-52) 06/18/18 19:20 Alkaline Phosphatase 144 U/L (34-104) H 06/18/18 19:20 Total Protein 7.2 gm/dL (6.0-8.3) 06/18/18 19:20 Albumin 4.2 gm/dL (4.2-5.5) 06/18/18 19:20 Globulin 3.0 gm/dL 06/18/18 19:20 Albumin/Globulin Ratio 1.4 (1.0-1.8) 06/18/18 19:20 Triglycerides 131 mg/dL (<150) 06/18/18 19:20 Cholesterol 72 mg/dL (<200) 06/18/18 19:20 LDL Cholesterol Direct 28 mg/dL (75-193) L 06/18/18 19:20 HDL Cholesterol 24 mg/dL (23-92) 06/18/18 19:20 TSH 2.58 uIU/ml (0.34-5.60) 06/18/18 19:20 Salicylates < 25.0 mg/L (30.0-100.0) L 06/18/18 19:20 Acetaminophen < 10.0 ug/mL (10.0-30.0) L 06/18/18 19:20 Ethyl Alcohol < 10 mg/dL (0-10) 06/18/18 19:20 RPR NONREACTIVE (NONREACTIVE) 06/18/18 19:20 - Physical Exam Vitals and I&O: Vital Signs Temp 97.7 F 06/22/18 12:57 Pulse 64 06/22/18 12:57 Resp 18 06/22/18 12:57 BP 130/67 06/22/18 12:57 Pulse Ox 96 06/22/18 12:57 Intake & Output 06/21/18 06/22/18 06/22/18 18:59 06:59 18:59 Intake Total 600 Output Total 0 Balance 600 Weight (lbs) 116.12 kg 116.12 kg Intake: Oral 600 Output: Urine 0 Other: # Voids 0 # Bowel Movements 0 Weight Source Bedscale Bedscale Active Medications: Current Medications Acetaminophen (Tylenol) 650 mg PO Q12H PRN PRN Reason: Pain (Mild) Stop: 08/17/18 22:02 Amlodipine Besylate (Norvasc) 10 mg PO DAILY [facility] Stop: 08/18/18 08:59 Last Admin: 06/22/18 08:17 Dose: Not Given Atorvastatin Calcium (Lipitor) 10 mg PO [facility]; Protocol Stop: 08/18/18 20:59 Last Admin: 06/21/18 21:07 Dose: 10 mg Carvedilol (Coreg) 25 mg PO BID [facility] Stop: 08/18/18 08:59 Last Admin: 06/22/18 08:17 Dose: Not Given Cholecalciferol (Vitamin D3) 1,000 iu PO DAILY [facility] Stop: 08/18/18 08:59 Last Admin: 06/22/18 08:29 Dose: 1,000 iu Dextrose (D50w) 50 ml IVP PRN PRN PRN Reason: Blood Glucose less than 70 Stop: 08/17/18 22:04 Dextrose (Glutose 40%) 18.75 gm PO PRN PRN PRN Reason: Blood Glucose less than 70 Stop: 08/17/18 22:04 Diltiazem HCl (Cardizem Cd) 120 mg PO DAILY [facility] Stop: 08/18/18 08:59 Last Admin: 06/22/18 08:17 Dose: Not Given Docusate Sodium (Colace) 100 mg PO DAILY [facility] Stop: 08/18/18 08:59 Last Admin: 06/22/18 08:29 Dose: 100 mg Famotidine (Pepcid) 20 mg PO DAILY [facility] Stop: 08/18/18 08:59 Last Admin: 06/22/18 08:29 Dose: 20 mg Fish Oil ([place] 3) 1,000 mg PO DAILY [facility] Stop: 08/18/18 08:59 Last Admin: 06/22/18 08:29 Dose: 1,000 mg Gabapentin (Neurontin) 100 mg PO DAILY [facility] Stop: 08/18/18 08:59 Last Admin: 06/22/18 08:29 Dose: 100 mg Glucagon (Glucagen) 1 mg IM PRN PRN PRN Reason: Blood Glucose less than 70 Stop: 08/17/18 22:04 Insulin Glargine (Lantus Insulin) 30 units SUBQ QAM [facility] Stop: 08/18/18 08:59 Last Admin: 06/22/18 08:26 Dose: 30 units Insulin Human Lispro (Humalog Insulin Sliding Scale) 0 units SUBQ ACHS [facility]; Protocol Stop: 08/18/18 07:29 Last Admin: 06/22/18 11:11 Dose: 2 units Lorazepam (Ativan) 1 mg IVP Q4H PRN; Protocol PRN Reason: Agitation Stop: 08/17/18 22:08 Paroxetine HCl (Paxil) 20 mg PO DAILY [facility]; Protocol Stop: 08/18/18 08:59 Last Admin: 06/22/18 08:29 Dose: 20 mg Risperidone (Risperdal) 0.5 mg PO BID [facility]; Protocol Stop: 08/18/18 16:59 Last Admin: 06/22/18 08:29 Dose: 0.5 mg Sevelamer Carbonate (Renvela) 2,400 mg PO TIDWM [facility] Stop: 08/20/18 07:59 Last Admin: 06/22/18 11:19 Dose: 2,400 mg Trazodone HCl (Desyrel) 50 mg PO HS [facility]; Protocol Stop: 08/19/18 20:59 Last Admin: 06/21/18 21:07 Dose: 50 mg General: Alert, No acute distress HEENT: Atraumatic, Mucous membr. 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 fib Hep C - Plan Plan: Lab - Result Diagrams 06/20/18 06:15 06/20/18 06:15 Current Medications Acetaminophen (Tylenol) 650 mg PO Q12H PRN PRN Reason: Pain (Mild) Stop: 08/17/18 22:02 Amlodipine Besylate (Norvasc) 10 mg PO DAILY [facility] Stop: 08/18/18 08:59 Last Admin: 06/20/18 09:09 Dose: 10 mg Atorvastatin Calcium (Lipitor) 10 mg PO HS [facility]; Protocol Stop: 08/18/18 20:59 Last Admin: 06/19/18 21:18 Dose: 10 mg Carvedilol (Coreg) 25 mg PO BID [facility] Stop: 08/18/18 08:59 Last Admin: 06/20/18 09:09 Dose: 25 mg Cholecalciferol (Vitamin D3) 1,000 iu PO DAILY [facility] Stop: 08/18/18 08:59 Last Admin: 06/20/18 09:09 Dose: 1,000 iu Dextrose (D50w) 50 ml IVP PRN PRN PRN Reason: Blood Glucose less than 70 Stop: 08/17/18 22:04 Dextrose (Glutose 40%) 18.75 gm PO PRN PRN PRN Reason: Blood Glucose less than 70 Stop: 08/17/18 22:04 Diltiazem HCl (Cardizem Cd) 120 mg PO DAILY [facility] Stop: 08/18/18 08:59 Last Admin: 06/20/18 09:08 Dose: 120 mg Docusate Sodium (Colace) 100 mg PO DAILY [facility] Stop: 08/18/18 08:59 Last Admin: 06/20/18 09:09 Dose: 100 mg Famotidine (Pepcid) 20 mg PO DAILY [facility] Stop: 08/18/18 08:59 Last Admin: 06/20/18 09:08 Dose: 20 mg Fish Oil ([place] 3) 1,000 mg PO DAILY [facility] Stop: 08/18/18 08:59 Last Admin: 06/20/18 09:09 Dose: 1,000 mg Gabapentin (Neurontin) 100 mg PO DAILY [facility] Stop: 08/18/18 08:59 Last Admin: 06/20/18 09:09 Dose: 100 mg Glucagon (Glucagen) 1 mg IM PRN PRN PRN Reason: Blood Glucose less than 70 Stop: 08/17/18 22:04 Albumin Human (Albuminar 25%) 25 gm in 100 mls @ 50 mls/hr IV PRN PRN PRN Reason: BP Support During HD Stop: 06/20/18 23:49 Insulin Glargine (Lantus Insulin) 30 units SUBQ QAM [facility] Stop: 08/18/18 08:59 Last Admin: 06/20/18 09:35 Dose: 30 units Insulin Human Lispro (Humalog Insulin Sliding Scale) 0 units SUBQ ACHS [facility]; Protocol Stop: 08/18/18 07:29 Last Admin: 06/20/18 11:45 Dose: 2 units Lorazepam (Ativan) 1 mg IVP Q4H PRN; Protocol PRN Reason: Agitation Stop: 08/17/18 22:08 Paroxetine HCl (Paxil) 20 mg PO DAILY [facility]; Protocol Stop: 08/18/18 08:59 Last Admin: 06/20/18 09:09 Dose: 20 mg Risperidone (Risperdal) 0.5 mg PO BID [facility]; Protocol Stop: 08/18/18 16:59 Last Admin: 06/20/18 09:09 Dose: 0.5 mg Lab - Result Diagrams 06/20/18 06:15 06/20/18 06:15 currently being dialyzed continue psych meds
[2018-06-22] MEDS: Apixaban 5 MG TABLET PO SCH (16:15)
--- NOTE | 2018-06-22 19:25 | Progress Notes ---
DATE: 06/22/2018 SUBJECTIVE: The patient is calm on exam. Denying any current perceptual disturbances. Mood "pretty good." He is pretty frustrated and upset because he has lost a lot of his mobility. He would like to get up if possible. Notes he is sleeping okay, eating well, denying any thoughts that he wants to hurt himself, does not feel targeted or paranoid in the sense. Currently tolerant to medications. Dr. Mcpherson placed him on Risperdal and this seems to be helping his mood symptoms. MENTAL STATUS EXAMINATION: Stated age white male. Mood "pretty good" constricted affect, engaged on exam. No SI, no HI, no intent, no plan. No overt psychotic symptoms. Apparently, the patient was agitated and had been having some perceptual disturbances upon initial presentation, but currently is not exhibiting any of these types of symptoms and yesterday also he was devoid of any of these symptoms. Currently stable on Risperdal, Paxil, no current criteria [facility]. No 5150 criteria. No evidence of dangerousness to others. No evidence of dangerousness to self. He does have a good discharge plan cleared from a psychiatric standpoint. JOB# [id number]
[2018-06-22] MEDS: Atorvastatin Calcium 10 MG TAB PO SCH (21:03)
[2018-06-23 06:57] LABS: % EOSINOPHILS 5.5 % (0.0-5.0); % LYMPHOCYTES 18.9 % (20.0-50.0); % MONOCYTES 8.8 % (2.0-10.0); % NEUTROPHILS 65.8 % (40.0-80.0); BASOPHILE ABSOLUTE 0.1 Th/cumm (0-0.2); EOSINOPHILE ABSOLUTE 0.4 Th/cmm (0.1-0.4); HEMATOCRIT 29.6 % (41.0-60); LYMPHOCYTE ABSOLUTE 1.4 Th/cmm (1.5-3.0); MEAN CELL VOLUME 97.2 fl (80-99); MEAN CORPUSCULAR HEMOGLOBIN 32.8 pg (26.0-30.0); MEAN CORPUSCULAR HGB CONC 33.7 pg (28.0-36.0); MEAN PLATELET VOLUME 7.5 fl; MONOCYTE ABSOLUTE 0.7 Th/cmm (0.3-1.0); PLATELET COUNT 142 Th/cmm (150-400); RED BLOOD COUNT 3.04 Mil/cmm (4.30-5.70); RED CELL DISTRIBUTION WIDTH 13.2 % (11.5-20.0); WHITE BLOOD COUNT 7.6 Th/cmm (4.8-10.8)
[2018-06-23] MEDS: INSULIN LISPRO SLIDING SCALE 100 UNITS/ML UNIT SUBQ SCH ×4 (07:13→20:50)
[2018-06-23 07:16] LABS: ANION GAP 16.6 (7.0-16.0); CALCIUM SERUM 9.6 mg/dL (8.6-10.3); CARBON DIOXIDE 27.5 mEq/L (21.0-31.0); GFR AFRICAN-AMERICAN 7.6 ml/min (>90); GFR NON AFRICAN-AMERICAN 6.3 ml/min; POTASSIUM SERUM 4.1 mEq/L (3.5-5.1)
[2018-06-23 08:04] LABS: CREATININE - SERUM 9.1 mg/dL (0.7-1.3)
[2018-06-23] MEDS: Fish Oil 1,000 MG SGL PO SCH (09:53)
[2018-06-23] MEDS: Diltiazem CD 120 mg 24H PO SCH (09:54)
[2018-06-23] MEDS: Insulin Glargine 100 units/ml 10ml Vial SUBQ SCH (09:58)
--- NOTE | 2018-06-23 14:59 | General Progress Note ---
Subjective - Review of Systems Service Date: 06/23/18 Subjective: alert, more verbal, comfortable Objective - Results Result Diagrams: 06/23/18 05:50 06/23/18 05:50 Recent Labs: Laboratory Last Values WBC 7.6 Th/cmm (4.8-10.8) 06/23/18 05:50 RBC 3.04 Mil/cmm (4.30-5.70) L 06/23/18 05:50 Hgb 10.0 gm/dL (12-16) L 06/23/18 05:50 Hct 29.6 % (41.0-60) L 06/23/18 05:50 MCV 97.2 fl (80-99) 06/23/18 05:50 MCH 32.8 pg (26.0-30.0) H 06/23/18 05:50 MCHC Differential 33.7 pg (28.0-36.0) 06/23/18 05:50 RDW 13.2 % (11.5-20.0) 06/23/18 05:50 Plt Count 142 Th/cmm (150-400) L 06/23/18 05:50 MPV 7.5 fl 06/23/18 05:50 Neutrophils % 65.8 % (40.0-80.0) 06/23/18 05:50 Lymphocytes % 18.9 % (20.0-50.0) L 06/23/18 05:50 Monocytes % 8.8 % (2.0-10.0) 06/23/18 05:50 Eosinophils % 5.5 % (0.0-5.0) H 06/23/18 05:50 Basophils % 1.0 % (0.0-2.0) 06/23/18 05:50 Sodium 132 mEq/L (136-145) L 06/23/18 05:50 Potassium 4.1 mEq/L (3.5-5.1) 06/23/18 05:50 Chloride 92 mEq/L (98-107) L 06/23/18 05:50 Carbon Dioxide 27.5 mEq/L (21.0-31.0) 06/23/18 05:50 Anion Gap 16.6 (7.0-16.0) H 06/23/18 05:50 BUN 48 mg/dL (7-25) H 06/23/18 05:50 Creatinine 9.1 mg/dL (0.7-1.3) H* 06/23/18 05:50 Est GFR ( Amer) 7.6 ml/min (>90) 06/23/18 05:50 Est GFR (Non-Af Amer) 6.3 ml/min 06/23/18 05:50 BUN/Creatinine Ratio 5.3 06/23/18 05:50 Glucose 99 mg/dL (70-105) 06/23/18 05:50 POC Glucose 115 MG/DL (70 - 105) H 06/23/18 06:13 Calcium 9.6 mg/dL (8.6-10.3) 06/23/18 05:50 Phosphorus 3.5 mg/dL (2.5-5.0) 06/20/18 06:15 Magnesium 2.3 mg/dL (1.9-2.7) 06/20/18 06:15 Total Bilirubin 0.4 mg/dL (0.3-1.0) 06/18/18 19:20 AST 15 U/L (13-39) 06/18/18 19:20 ALT 19 U/L (7-52) 06/18/18 19:20 Alkaline Phosphatase 144 U/L (34-104) H 06/18/18 19:20 Total Protein 7.2 gm/dL (6.0-8.3) 06/18/18 19:20 Albumin 4.2 gm/dL (4.2-5.5) 06/18/18 19:20 Globulin 3.0 gm/dL 06/18/18 19:20 Albumin/Globulin Ratio 1.4 (1.0-1.8) 06/18/18 19:20 Triglycerides 131 mg/dL (<150) 06/18/18 19:20 Cholesterol 72 mg/dL (<200) 06/18/18 19:20 LDL Cholesterol Direct 28 mg/dL (75-193) L 06/18/18 19:20 HDL Cholesterol 24 mg/dL (23-92) 06/18/18 19:20 TSH 2.58 uIU/ml (0.34-5.60) 06/18/18 19:20 Salicylates < 25.0 mg/L (30.0-100.0) L 06/18/18 19:20 Acetaminophen < 10.0 ug/mL (10.0-30.0) L 06/18/18 19:20 Ethyl Alcohol < 10 mg/dL (0-10) 06/18/18 19:20 RPR NONREACTIVE (NONREACTIVE) 06/18/18 19:20 - Physical Exam Vitals and I&O: Vital Signs Temp 98.2 F 06/23/18 13:05 Pulse 68 06/23/18 13:05 Resp 20 06/23/18 13:05 BP 113/53 06/23/18 13:05 Pulse Ox 95 06/23/18 13:05 Intake & Output 06/22/18 06/23/18 06/23/18 18:59 06:59 18:59 Intake Total 400 Output Total 0 2 Balance 400 -2 Weight (lbs) 116.12 kg 116.12 kg Intake: Oral 400 Output: Urine 0 2 Other: # Voids 0 # Bowel Movements 0 1 Weight Source Bedscale Bedscale Active Medications: Current Medications Acetaminophen (Tylenol) 650 mg PO Q12H PRN PRN Reason: Pain (Mild) Stop: 08/17/18 22:02 Last Admin: 06/22/18 21:03 Dose: 650 mg Amlodipine Besylate (Norvasc) 10 mg PO DAILY [facility] Stop: 08/18/18 08:59 Last Admin: 06/23/18 09:55 Dose: 10 mg Atorvastatin Calcium (Lipitor) 10 mg PO HS [facility]; Protocol Stop: 08/18/18 20:59 Last Admin: 06/22/18 21:03 Dose: 10 mg Carvedilol (Coreg) 25 mg PO BID [facility] Stop: 08/18/18 08:59 Last Admin: 06/23/18 09:56 Dose: 25 mg Cholecalciferol (Vitamin D3) 1,000 iu PO DAILY [facility] Stop: 08/18/18 08:59 Last Admin: 06/23/18 09:54 Dose: 1,000 iu Dextrose (D50w) 50 ml IVP PRN PRN PRN Reason: Blood Glucose less than 70 Stop: 08/17/18 22:04 Dextrose (Glutose 40%) 18.75 gm PO PRN PRN PRN Reason: Blood Glucose less than 70 Stop: 08/17/18 22:04 Diltiazem HCl (Cardizem Cd) 120 mg PO DAILY [facility] Stop: 08/18/18 08:59 Last Admin: 06/23/18 09:54 Dose: 120 mg Docusate Sodium (Colace) 100 mg PO DAILY [facility] Stop: 08/18/18 08:59 Last Admin: 06/23/18 09:55 Dose: 100 mg Famotidine (Pepcid) 20 mg PO DAILY [facility] Stop: 08/18/18 08:59 Last Admin: 06/23/18 09:55 Dose: 20 mg Fish Oil ([place] 3) 1,000 mg PO DAILY [facility] Stop: 08/18/18 08:59 Last Admin: 06/23/18 09:53 Dose: 1,000 mg Gabapentin (Neurontin) 100 mg PO DAILY [facility] Stop: 08/18/18 08:59 Last Admin: 06/23/18 09:54 Dose: 100 mg Glucagon (Glucagen) 1 mg IM PRN PRN PRN Reason: Blood Glucose less than 70 Stop: 08/17/18 22:04 Insulin Glargine (Lantus Insulin) 30 units SUBQ QAM [facility] Stop: 08/18/18 08:59 Last Admin: 06/23/18 09:58 Dose: 30 units Insulin Human Lispro (Humalog Insulin Sliding Scale) 0 units SUBQ ACHS [facility]; Protocol Stop: 08/18/18 07:29 Last Admin: 06/23/18 12:53 Dose: Not Given Lorazepam (Ativan) 1 mg IVP Q4H PRN; Protocol PRN Reason: Agitation Stop: 08/17/18 22:08 Paroxetine HCl (Paxil) 20 mg PO DAILY [facility]; Protocol Stop: 08/18/18 08:59 Last Admin: 06/23/18 10:11 Dose: 20 mg Risperidone (Risperdal) 0.5 mg PO BID [facility]; Protocol Stop: 08/18/18 16:59 Last Admin: 06/23/18 09:54 Dose: 0.5 mg Sevelamer Carbonate (Renvela) 2,400 mg PO TIDWM [facility] Stop: 08/20/18 07:59 Last Admin: 06/23/18 14:04 Dose: 2,400 mg Trazodone HCl (Desyrel) 50 mg PO HS [facility]; Protocol Stop: 08/19/18 20:59 Last Admin: 06/22/18 21:03 Dose: 50 mg General: Alert, No acute distress HEENT: Atraumatic, Mucous membr. 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 fib Hep C - Plan Plan: Lab - Result Diagrams 06/20/18 06:15 06/20/18 06:15 Current Medications Acetaminophen (Tylenol) 650 mg PO Q12H PRN PRN Reason: Pain (Mild) Stop: 08/17/18 22:02 Amlodipine Besylate (Norvasc) 10 mg PO DAILY [facility] Stop: 08/18/18 08:59 Last Admin: 06/20/18 09:09 Dose: 10 mg Atorvastatin Calcium (Lipitor) 10 mg PO HS [facility]; Protocol Stop: 08/18/18 20:59 Last Admin: 06/19/18 21:18 Dose: 10 mg Carvedilol (Coreg) 25 mg PO BID [facility] Stop: 08/18/18 08:59 Last Admin: 06/20/18 09:09 Dose: 25 mg Cholecalciferol (Vitamin D3) 1,000 iu PO DAILY [facility] Stop: 08/18/18 08:59 Last Admin: 06/20/18 09:09 Dose: 1,000 iu Dextrose (D50w) 50 ml IVP PRN PRN PRN Reason: Blood Glucose less than 70 Stop: 08/17/18 22:04 Dextrose (Glutose 40%) 18.75 gm PO PRN PRN PRN Reason: Blood Glucose less than 70 Stop: 08/17/18 22:04 Diltiazem HCl (Cardizem Cd) 120 mg PO DAILY [facility] Stop: 08/18/18 08:59 Last Admin: 06/20/18 09:08 Dose: 120 mg Docusate Sodium (Colace) 100 mg PO DAILY [facility] Stop: 08/18/18 08:59 Last Admin: 06/20/18 09:09 Dose: 100 mg Famotidine (Pepcid) 20 mg PO DAILY [facility] Stop: 08/18/18 08:59 Last Admin: 06/20/18 09:08 Dose: 20 mg Fish Oil ([place] 3) 1,000 mg PO DAILY [facility] Stop: 08/18/18 08:59 Last Admin: 06/20/18 09:09 Dose: 1,000 mg Gabapentin (Neurontin) 100 mg PO DAILY [facility] Stop: 08/18/18 08:59 Last Admin: 06/20/18 09:09 Dose: 100 mg Glucagon (Glucagen) 1 mg IM PRN PRN PRN Reason: Blood Glucose less than 70 Stop: 08/17/18 22:04 Albumin Human (Albuminar 25%) 25 gm in 100 mls @ 50 mls/hr IV PRN PRN PRN Reason: BP Support During HD Stop: 06/20/18 23:49 Insulin Glargine (Lantus Insulin) 30 units SUBQ QAM [facility] Stop: 08/18/18 08:59 Last Admin: 06/20/18 09:35 Dose: 30 units Insulin Human Lispro (Humalog Insulin Sliding Scale) 0 units SUBQ ACHS [facility]; Protocol Stop: 08/18/18 07:29 Last Admin: 06/20/18 11:45 Dose: 2 units Lorazepam (Ativan) 1 mg IVP Q4H PRN; Protocol PRN Reason: Agitation Stop: 08/17/18 22:08 Paroxetine HCl (Paxil) 20 mg PO DAILY [facility]; Protocol Stop: 08/18/18 08:59 Last Admin: 06/20/18 09:09 Dose: 20 mg Risperidone (Risperdal) 0.5 mg PO BID [facility]; Protocol Stop: 08/18/18 16:59 Last Admin: 06/20/18 09:09 Dose: 0.5 mg Lab - Result Diagrams 06/20/18 06:15 06/20/18 06:15 pt. was dialyzed yesterday & tolerated it well continue psych meds possible DC today
--- NOTE | 2018-06-23 16:32 | Internal Medicine Prog Note ---
Internal Medicine Subjective - Subjective Patient seen and examined:: chart reviewed (hb low 10.0) Patient is:: awake, verbal, agitated, confused Patient Complaints of:: other (Inappropriate behavior.) Per staff patient has:: no adverse event, no episodes of fall, confused ( confused, irritble ) Internal Medicine Objective - Results Result Diagrams: 06/23/18 05:50 06/23/18 05:50 Recent Labs: Laboratory Last Values WBC 7.6 Th/cmm (4.8-10.8) 06/23/18 05:50 RBC 3.04 Mil/cmm (4.30-5.70) L 06/23/18 05:50 Hgb 10.0 gm/dL (12-16) L 06/23/18 05:50 Hct 29.6 % (41.0-60) L 06/23/18 05:50 MCV 97.2 fl (80-99) 06/23/18 05:50 MCH 32.8 pg (26.0-30.0) H 06/23/18 05:50 MCHC Differential 33.7 pg (28.0-36.0) 06/23/18 05:50 RDW 13.2 % (11.5-20.0) 06/23/18 05:50 Plt Count 142 Th/cmm (150-400) L 06/23/18 05:50 MPV 7.5 fl 06/23/18 05:50 Neutrophils % 65.8 % (40.0-80.0) 06/23/18 05:50 Lymphocytes % 18.9 % (20.0-50.0) L 06/23/18 05:50 Monocytes % 8.8 % (2.0-10.0) 06/23/18 05:50 Eosinophils % 5.5 % (0.0-5.0) H 06/23/18 05:50 Basophils % 1.0 % (0.0-2.0) 06/23/18 05:50 Sodium 132 mEq/L (136-145) L 06/23/18 05:50 Potassium 4.1 mEq/L (3.5-5.1) 06/23/18 05:50 Chloride 92 mEq/L (98-107) L 06/23/18 05:50 Carbon Dioxide 27.5 mEq/L (21.0-31.0) 06/23/18 05:50 Anion Gap 16.6 (7.0-16.0) H 06/23/18 05:50 BUN 48 mg/dL (7-25) H 06/23/18 05:50 Creatinine 9.1 mg/dL (0.7-1.3) H* 06/23/18 05:50 Est GFR ( Amer) 7.6 ml/min (>90) 06/23/18 05:50 Est GFR (Non-Af Amer) 6.3 ml/min 06/23/18 05:50 BUN/Creatinine Ratio 5.3 06/23/18 05:50 Glucose 99 mg/dL (70-105) 06/23/18 05:50 POC Glucose 115 MG/DL (70 - 105) H 06/23/18 06:13 Calcium 9.6 mg/dL (8.6-10.3) 06/23/18 05:50 Phosphorus 3.5 mg/dL (2.5-5.0) 06/20/18 06:15 Magnesium 2.3 mg/dL (1.9-2.7) 06/20/18 06:15 Total Bilirubin 0.4 mg/dL (0.3-1.0) 06/18/18 19:20 AST 15 U/L (13-39) 06/18/18 19:20 ALT 19 U/L (7-52) 06/18/18 19:20 Alkaline Phosphatase 144 U/L (34-104) H 06/18/18 19:20 Total Protein 7.2 gm/dL (6.0-8.3) 06/18/18 19:20 Albumin 4.2 gm/dL (4.2-5.5) 06/18/18 19:20 Globulin 3.0 gm/dL 06/18/18 19:20 Albumin/Globulin Ratio 1.4 (1.0-1.8) 06/18/18 19:20 Triglycerides 131 mg/dL (<150) 06/18/18 19:20 Cholesterol 72 mg/dL (<200) 06/18/18 19:20 LDL Cholesterol Direct 28 mg/dL (75-193) L 06/18/18 19:20 HDL Cholesterol 24 mg/dL (23-92) 06/18/18 19:20 TSH 2.58 uIU/ml (0.34-5.60) 06/18/18 19:20 Salicylates < 25.0 mg/L (30.0-100.0) L 06/18/18 19:20 Acetaminophen < 10.0 ug/mL (10.0-30.0) L 06/18/18 19:20 Ethyl Alcohol < 10 mg/dL (0-10) 06/18/18 19:20 RPR NONREACTIVE (NONREACTIVE) 06/18/18 19:20 - Physical Exam Vitals and I&O: Vital Signs Temp 98.6 F 06/23/18 16:00 Pulse 66 06/23/18 16:00 Resp 20 06/23/18 16:00 BP 124/65 06/23/18 16:00 Pulse Ox 95 06/23/18 16:00 Intake & Output 06/22/18 06/23/18 06/23/18 18:59 06:59 18:59 Intake Total 400 Output Total 0 2 Balance 400 -2 Weight (lbs) 116.12 kg 116.12 kg Intake: Oral 400 Output: Urine 0 2 Other: # Voids 0 # Bowel Movements 0 1 Weight Source Bedscale Bedscale Active Medications: Current Medications Acetaminophen (Tylenol) 650 mg PO Q12H PRN PRN Reason: Pain (Mild) Stop: 08/17/18 22:02 Last Admin: 06/22/18 21:03 Dose: 650 mg Amlodipine Besylate (Norvasc) 10 mg PO DAILY [facility] Stop: 08/18/18 08:59 Last Admin: 06/23/18 09:55 Dose: 10 mg Atorvastatin Calcium (Lipitor) 10 mg PO HS [facility]; Protocol Stop: 08/18/18 20:59 Last Admin: 06/22/18 21:03 Dose: 10 mg Carvedilol (Coreg) 25 mg PO BID [facility] Stop: 08/18/18 08:59 Last Admin: 06/23/18 09:56 Dose: 25 mg Cholecalciferol (Vitamin D3) 1,000 iu PO DAILY [facility] Stop: 08/18/18 08:59 Last Admin: 06/23/18 09:54 Dose: 1,000 iu Dextrose (D50w) 50 ml IVP PRN PRN PRN Reason: Blood Glucose less than 70 Stop: 08/17/18 22:04 Dextrose (Glutose 40%) 18.75 gm PO PRN PRN PRN Reason: Blood Glucose less than 70 Stop: 08/17/18 22:04 Diltiazem HCl (Cardizem Cd) 120 mg PO DAILY [facility] Stop: 08/18/18 08:59 Last Admin: 06/23/18 09:54 Dose: 120 mg Docusate Sodium (Colace) 100 mg PO DAILY [facility] Stop: 08/18/18 08:59 Last Admin: 06/23/18 09:55 Dose: 100 mg Famotidine (Pepcid) 20 mg PO DAILY [facility] Stop: 08/18/18 08:59 Last Admin: 06/23/18 09:55 Dose: 20 mg Fish Oil ([place] 3) 1,000 mg PO DAILY [facility] Stop: 08/18/18 08:59 Last Admin: 06/23/18 09:53 Dose: 1,000 mg Gabapentin (Neurontin) 100 mg PO DAILY [facility] Stop: 08/18/18 08:59 Last Admin: 06/23/18 09:54 Dose: 100 mg Glucagon (Glucagen) 1 mg IM PRN PRN PRN Reason: Blood Glucose less than 70 Stop: 08/17/18 22:04 Insulin Glargine (Lantus Insulin) 30 units SUBQ QAM [facility] Stop: 08/18/18 08:59 Last Admin: 06/23/18 09:58 Dose: 30 units Insulin Human Lispro (Humalog Insulin Sliding Scale) 0 units SUBQ ACHS [facility]; Protocol Stop: 08/18/18 07:29 Last Admin: 06/23/18 12:53 Dose: Not Given Lorazepam (Ativan) 1 mg IVP Q4H PRN; Protocol PRN Reason: Agitation Stop: 08/17/18 22:08 Paroxetine HCl (Paxil) 20 mg PO DAILY [facility]; Protocol Stop: 08/18/18 08:59 Last Admin: 06/23/18 10:11 Dose: 20 mg Risperidone (Risperdal) 0.5 mg PO BID [facility]; Protocol Stop: 08/18/18 16:59 Last Admin: 06/23/18 09:54 Dose: 0.5 mg Sevelamer Carbonate (Renvela) 2,400 mg PO TIDWM [facility] Stop: 08/20/18 07:59 Last Admin: 06/23/18 14:04 Dose: 2,400 mg Trazodone HCl (Desyrel) 50 mg PO HS [facility]; Protocol Stop: 08/19/18 20:59 Last Admin: 06/22/18 21:03 Dose: 50 mg Physical Exam: 63 y/o male patient is agitated easily and has inappropriate behavior. General: demented HEENT: NC/AT Neck: Supple Lungs: CTAB Cardiovascular: RRR, Normal S1 Abdomen: soft, non-tender Extremities: clear Neurological: no change Internal Medicine Assmt/Plan - Assessment Assessment: psychosis esrd/hd htn hyperlipidemia a fib dm anemia - Plan Plan: as per psych will monitor labs, monitor h/h levels
[2018-06-23] MEDS: Apixaban 5 MG TABLET PO SCH (17:49)
[2018-06-23] MEDS: Atorvastatin Calcium 10 MG TAB PO SCH (21:49)
[2018-06-24] MEDS: INSULIN LISPRO SLIDING SCALE 100 UNITS/ML UNIT SUBQ SCH ×3 (08:45→18:42)
[2018-06-24] MEDS: Fish Oil 1,000 MG SGL PO SCH (08:50)
[2018-06-24] MEDS: Diltiazem CD 120 mg 24H PO SCH (08:52)
[2018-06-24] MEDS: Insulin Glargine 100 units/ml 10ml Vial SUBQ SCH (10:59)
--- NOTE | 2018-06-24 12:00 | Internal Medicine Prog Note ---
Internal Medicine Subjective - Subjective Service Date: 06/24/18 Patient is:: awake, verbal, agitated, confused Patient Complaints of:: other (Inappropriate behavior.) Per staff patient has:: no adverse event, no episodes of fall, confused ( confused, irritble ) Internal Medicine Objective - Results Result Diagrams: 06/23/18 05:50 06/23/18 05:50 Recent Labs: Laboratory Last Values WBC 7.6 Th/cmm (4.8-10.8) 06/23/18 05:50 RBC 3.04 Mil/cmm (4.30-5.70) L 06/23/18 05:50 Hgb 10.0 gm/dL (12-16) L 06/23/18 05:50 Hct 29.6 % (41.0-60) L 06/23/18 05:50 MCV 97.2 fl (80-99) 06/23/18 05:50 MCH 32.8 pg (26.0-30.0) H 06/23/18 05:50 MCHC Differential 33.7 pg (28.0-36.0) 06/23/18 05:50 RDW 13.2 % (11.5-20.0) 06/23/18 05:50 Plt Count 142 Th/cmm (150-400) L 06/23/18 05:50 MPV 7.5 fl 06/23/18 05:50 Neutrophils % 65.8 % (40.0-80.0) 06/23/18 05:50 Lymphocytes % 18.9 % (20.0-50.0) L 06/23/18 05:50 Monocytes % 8.8 % (2.0-10.0) 06/23/18 05:50 Eosinophils % 5.5 % (0.0-5.0) H 06/23/18 05:50 Basophils % 1.0 % (0.0-2.0) 06/23/18 05:50 Sodium 132 mEq/L (136-145) L 06/23/18 05:50 Potassium 4.1 mEq/L (3.5-5.1) 06/23/18 05:50 Chloride 92 mEq/L (98-107) L 06/23/18 05:50 Carbon Dioxide 27.5 mEq/L (21.0-31.0) 06/23/18 05:50 Anion Gap 16.6 (7.0-16.0) H 06/23/18 05:50 BUN 48 mg/dL (7-25) H 06/23/18 05:50 Creatinine 9.1 mg/dL (0.7-1.3) H* 06/23/18 05:50 Est GFR ( Amer) 7.6 ml/min (>90) 06/23/18 05:50 Est GFR (Non-Af Amer) 6.3 ml/min 06/23/18 05:50 BUN/Creatinine Ratio 5.3 06/23/18 05:50 Glucose 99 mg/dL (70-105) 06/23/18 05:50 POC Glucose 120 MG/DL (70 - 105) H 06/24/18 08:44 Calcium 9.6 mg/dL (8.6-10.3) 06/23/18 05:50 Phosphorus 3.5 mg/dL (2.5-5.0) 06/20/18 06:15 Magnesium 2.3 mg/dL (1.9-2.7) 06/20/18 06:15 Total Bilirubin 0.4 mg/dL (0.3-1.0) 06/18/18 19:20 AST 15 U/L (13-39) 06/18/18 19:20 ALT 19 U/L (7-52) 06/18/18 19:20 Alkaline Phosphatase 144 U/L (34-104) H 06/18/18 19:20 Total Protein 7.2 gm/dL (6.0-8.3) 06/18/18 19:20 Albumin 4.2 gm/dL (4.2-5.5) 06/18/18 19:20 Globulin 3.0 gm/dL 06/18/18 19:20 Albumin/Globulin Ratio 1.4 (1.0-1.8) 06/18/18 19:20 Triglycerides 131 mg/dL (<150) 06/18/18 19:20 Cholesterol 72 mg/dL (<200) 06/18/18 19:20 LDL Cholesterol Direct 28 mg/dL (75-193) L 06/18/18 19:20 HDL Cholesterol 24 mg/dL (23-92) 06/18/18 19:20 TSH 2.58 uIU/ml (0.34-5.60) 06/18/18 19:20 Salicylates < 25.0 mg/L (30.0-100.0) L 06/18/18 19:20 Acetaminophen < 10.0 ug/mL (10.0-30.0) L 06/18/18 19:20 Ethyl Alcohol < 10 mg/dL (0-10) 06/18/18 19:20 RPR NONREACTIVE (NONREACTIVE) 06/18/18 19:20 - Physical Exam Vitals and I&O: Vital Signs Temp 97.8 F 06/24/18 09:35 Pulse 76 06/24/18 09:35 Resp 18 06/24/18 09:35 BP 91/49 06/24/18 09:35 Pulse Ox 96 06/24/18 09:35 Intake & Output 06/23/18 06/24/18 06/24/18 18:59 06:59 18:59 Intake Total 660 240 Balance 660 240 Weight (lbs) 256 lb 256 lb Intake: Oral 380 240 Other 280 Other: # Voids 3 # Bowel Movements 1 1 Weight Source Patient stated Estimated Active Medications: Current Medications Acetaminophen (Tylenol) 650 mg PO Q12H PRN PRN Reason: Pain (Mild) Stop: 08/17/18 22:02 Last Admin: 06/22/18 21:03 Dose: 650 mg Amlodipine Besylate (Norvasc) 10 mg PO DAILY [facility] Stop: 08/18/18 08:59 Last Admin: 06/24/18 08:52 Dose: Not Given Atorvastatin Calcium (Lipitor) 10 mg PO HS [facility]; Protocol Stop: 08/18/18 20:59 Last Admin: 06/23/18 21:49 Dose: Not Given Carvedilol (Coreg) 25 mg PO BID [facility] Stop: 08/18/18 08:59 Last Admin: 06/24/18 08:52 Dose: Not Given Cholecalciferol (Vitamin D3) 1,000 iu PO DAILY [facility] Stop: 08/18/18 08:59 Last Admin: 06/24/18 08:50 Dose: 1,000 iu Dextrose (D50w) 50 ml IVP PRN PRN PRN Reason: Blood Glucose less than 70 Stop: 08/17/18 22:04 Dextrose (Glutose 40%) 18.75 gm PO PRN PRN PRN Reason: Blood Glucose less than 70 Stop: 08/17/18 22:04 Diltiazem HCl (Cardizem Cd) 120 mg PO DAILY [facility] Stop: 08/18/18 08:59 Last Admin: 06/24/18 08:52 Dose: Not Given Docusate Sodium (Colace) 100 mg PO DAILY [facility] Stop: 08/18/18 08:59 Last Admin: 06/24/18 08:51 Dose: 100 mg Famotidine (Pepcid) 20 mg PO DAILY [facility] Stop: 08/18/18 08:59 Last Admin: 06/24/18 08:50 Dose: 20 mg Fish Oil ([place] 3) 1,000 mg PO DAILY [facility] Stop: 08/18/18 08:59 Last Admin: 06/24/18 08:50 Dose: 1,000 mg Gabapentin (Neurontin) 100 mg PO DAILY [facility] Stop: 08/18/18 08:59 Last Admin: 06/24/18 08:51 Dose: 100 mg Glucagon (Glucagen) 1 mg IM PRN PRN PRN Reason: Blood Glucose less than 70 Stop: 08/17/18 22:04 Insulin Glargine (Lantus Insulin) 30 units SUBQ QAM [facility] Stop: 08/18/18 08:59 Last Admin: 06/24/18 10:59 Dose: Not Given Insulin Human Lispro (Humalog Insulin Sliding Scale) 0 units SUBQ ACHS [facility]; Protocol Stop: 08/18/18 07:29 Last Admin: 06/24/18 08:45 Dose: Not Given Lorazepam (Ativan) 1 mg IVP Q4H PRN; Protocol PRN Reason: Agitation Stop: 08/17/18 22:08 Paroxetine HCl (Paxil) 20 mg PO DAILY [facility]; Protocol Stop: 08/18/18 08:59 Last Admin: 06/24/18 08:50 Dose: 20 mg Risperidone (Risperdal) 0.5 mg PO BID [facility]; Protocol Stop: 08/18/18 16:59 Last Admin: 06/24/18 08:51 Dose: 0.5 mg Sevelamer Carbonate (Renvela) 2,400 mg PO TIDWM [facility] Stop: 08/20/18 07:59 Last Admin: 06/24/18 08:50 Dose: 2,400 mg Trazodone HCl (Desyrel) 50 mg PO HS [facility]; Protocol Stop: 08/19/18 20:59 Last Admin: 06/23/18 21:49 Dose: Not Given General: demented HEENT: NC/AT Neck: Supple Lungs: CTAB Cardiovascular: RRR, Normal S1 Abdomen: soft, non-tender Extremities: clear Neurological: no change Nutritional Asmnt/Malnutr-PDOC - Dietary Evaluation Malnutrition Findings (Please click <Entered> for more info): Nutritional Asmnt/Malnutrition Start: 06/23/18 17: 23 Text: Status: Complete Freq: Protocol: Document 06/23/18 17:23 LCHENG (Rec: 06/23/18 17:41 LCHENG [id number]) Nutritional Asmnt/Malnutrition Patient General Information Nutritional Screening Moderate Risk Diagnosis renal failure, altered mental status Pertinent Medical Hx/Surgical Hx HTN, DM, dyslipidemia, PUD/ GERD, ESRD on dialysis, afib, hep C, ischemic encephalopathy , anemia Subjective Information Pt seen sitting on chair at time of visit, awake and alert . Food preference provided to RD. Noticed pt has no teeth, but pt denied any chewing/ swallowing problem on current diet. Per EMR, PO intake 100%. Discussed with pt about renal diet restrictions. Current Diet Order/ Nutrition Support renal standard, JUHI Pertinent Medications lipitor, vit D3, colace, pepcid, omega 3, lantus, humalog, renvela Pertinent Labs 06/23 Na 132, Cl 92, BUN 48, Cr 9.1, glucsoe 99, POC 79-115 Nutritional Hx/Data Height 5 ft 9 in Height (Calculated Centimeters) 175.3 Current Weight (lbs) 256 lb Weight (Calculated Kilograms) 116.1 Weight (Calculated Grams) 747707.6 [place] Body Weight 160 Body Mass Index (BMI) 37.8 Weight Status Obese GI Symptoms GI Symptoms None Last BM 06/23 Difficult in: None Skin Integrity/Comment: intact Estimated Nutritional Goals BEE in Kcals: Adj wt of IBW Calories/Kcals/Kg 25-30 Kcals Calculated [id number] Protein: Adj wt of IBW Protein g/k-1.2 Protein Calculated 83-100 Fluid: ml per MD Nutritional Problem 1. Problem Problem altered nutrition related labs Etiology ESRD Signs/Symptoms: BUN 48, Cr 9.1 Malnutrition Alert Is there a minimum of two criteria No selected? Query Text:Check all the applicable criteria. A minimum of two criteria are recommended for diagnosis of either severe or non-severe malnutrition. Malnutrition Related to Morbid Obesity Malnutrition related to morbid obesity No Intervention/Recommendation Comments 1. Continue with renal diet as ordered. Adjust protein level to 80g. 2. Monitor PO intake, wt, labs and skin integrity 3. F/U as moderate risk in 3-5 days Expected Outcomes/Goals Expected Outcomes/Goals 1. PO intake to meet at least 75% of nutritional needs. 2. Wt stability, skin to remain intact, labs to approach WNL.
--- NOTE | 2018-06-24 13:26 | General Progress Note ---
Subjective - Review of Systems Service Date: 06/24/18 Subjective: alert, more verbal, comfortable, less agitated Objective - Results Result Diagrams: 06/23/18 05:50 06/23/18 05:50 Recent Labs: Laboratory Last Values WBC 7.6 Th/cmm (4.8-10.8) 06/23/18 05:50 RBC 3.04 Mil/cmm (4.30-5.70) L 06/23/18 05:50 Hgb 10.0 gm/dL (12-16) L 06/23/18 05:50 Hct 29.6 % (41.0-60) L 06/23/18 05:50 MCV 97.2 fl (80-99) 06/23/18 05:50 MCH 32.8 pg (26.0-30.0) H 06/23/18 05:50 MCHC Differential 33.7 pg (28.0-36.0) 06/23/18 05:50 RDW 13.2 % (11.5-20.0) 06/23/18 05:50 Plt Count 142 Th/cmm (150-400) L 06/23/18 05:50 MPV 7.5 fl 06/23/18 05:50 Neutrophils % 65.8 % (40.0-80.0) 06/23/18 05:50 Lymphocytes % 18.9 % (20.0-50.0) L 06/23/18 05:50 Monocytes % 8.8 % (2.0-10.0) 06/23/18 05:50 Eosinophils % 5.5 % (0.0-5.0) H 06/23/18 05:50 Basophils % 1.0 % (0.0-2.0) 06/23/18 05:50 Sodium 132 mEq/L (136-145) L 06/23/18 05:50 Potassium 4.1 mEq/L (3.5-5.1) 06/23/18 05:50 Chloride 92 mEq/L (98-107) L 06/23/18 05:50 Carbon Dioxide 27.5 mEq/L (21.0-31.0) 06/23/18 05:50 Anion Gap 16.6 (7.0-16.0) H 06/23/18 05:50 BUN 48 mg/dL (7-25) H 06/23/18 05:50 Creatinine 9.1 mg/dL (0.7-1.3) H* 06/23/18 05:50 Est GFR ( Amer) 7.6 ml/min (>90) 06/23/18 05:50 Est GFR (Non-Af Amer) 6.3 ml/min 06/23/18 05:50 BUN/Creatinine Ratio 5.3 06/23/18 05:50 Glucose 99 mg/dL (70-105) 06/23/18 05:50 POC Glucose 106 MG/DL (70 - 105) H 06/24/18 12:49 Calcium 9.6 mg/dL (8.6-10.3) 06/23/18 05:50 Phosphorus 3.5 mg/dL (2.5-5.0) 06/20/18 06:15 Magnesium 2.3 mg/dL (1.9-2.7) 06/20/18 06:15 Total Bilirubin 0.4 mg/dL (0.3-1.0) 06/18/18 19:20 AST 15 U/L (13-39) 06/18/18 19:20 ALT 19 U/L (7-52) 06/18/18 19:20 Alkaline Phosphatase 144 U/L (34-104) H 06/18/18 19:20 Total Protein 7.2 gm/dL (6.0-8.3) 06/18/18 19:20 Albumin 4.2 gm/dL (4.2-5.5) 06/18/18 19:20 Globulin 3.0 gm/dL 06/18/18 19:20 Albumin/Globulin Ratio 1.4 (1.0-1.8) 06/18/18 19:20 Triglycerides 131 mg/dL (<150) 06/18/18 19:20 Cholesterol 72 mg/dL (<200) 06/18/18 19:20 LDL Cholesterol Direct 28 mg/dL (75-193) L 06/18/18 19:20 HDL Cholesterol 24 mg/dL (23-92) 06/18/18 19:20 TSH 2.58 uIU/ml (0.34-5.60) 06/18/18 19:20 Salicylates < 25.0 mg/L (30.0-100.0) L 06/18/18 19:20 Acetaminophen < 10.0 ug/mL (10.0-30.0) L 06/18/18 19:20 Ethyl Alcohol < 10 mg/dL (0-10) 06/18/18 19:20 RPR NONREACTIVE (NONREACTIVE) 06/18/18 19:20 - Physical Exam Vitals and I&O: Vital Signs Temp 97.8 F 06/24/18 09:35 Pulse 76 06/24/18 09:35 Resp 18 06/24/18 09:35 BP 91/49 06/24/18 09:35 Pulse Ox 96 06/24/18 09:35 Intake & Output 06/23/18 06/24/18 06/24/18 18:59 06:59 18:59 Intake Total 660 240 Balance 660 240 Weight (lbs) 116.12 kg 116.12 kg Intake: Oral 380 240 Other 280 Other: # Voids 3 # Bowel Movements 1 1 Weight Source Patient stated Estimated Active Medications: Current Medications Acetaminophen (Tylenol) 650 mg PO Q12H PRN PRN Reason: Pain (Mild) Stop: 08/17/18 22:02 Last Admin: 06/22/18 21:03 Dose: 650 mg Amlodipine Besylate (Norvasc) 10 mg PO DAILY [facility] Stop: 08/18/18 08:59 Last Admin: 06/24/18 08:52 Dose: Not Given Atorvastatin Calcium (Lipitor) 10 mg PO HS [facility]; Protocol Stop: 08/18/18 20:59 Last Admin: 06/23/18 21:49 Dose: Not Given Carvedilol (Coreg) 25 mg PO BID [facility] Stop: 08/18/18 08:59 Last Admin: 06/24/18 08:52 Dose: Not Given Cholecalciferol (Vitamin D3) 1,000 iu PO DAILY [facility] Stop: 08/18/18 08:59 Last Admin: 06/24/18 08:50 Dose: 1,000 iu Dextrose (D50w) 50 ml IVP PRN PRN PRN Reason: Blood Glucose less than 70 Stop: 08/17/18 22:04 Dextrose (Glutose 40%) 18.75 gm PO PRN PRN PRN Reason: Blood Glucose less than 70 Stop: 08/17/18 22:04 Diltiazem HCl (Cardizem Cd) 120 mg PO DAILY [facility] Stop: 08/18/18 08:59 Last Admin: 06/24/18 08:52 Dose: Not Given Docusate Sodium (Colace) 100 mg PO DAILY [facility] Stop: 08/18/18 08:59 Last Admin: 06/24/18 08:51 Dose: 100 mg Famotidine (Pepcid) 20 mg PO DAILY [facility] Stop: 08/18/18 08:59 Last Admin: 06/24/18 08:50 Dose: 20 mg Fish Oil ([place] 3) 1,000 mg PO DAILY [facility] Stop: 08/18/18 08:59 Last Admin: 06/24/18 08:50 Dose: 1,000 mg Gabapentin (Neurontin) 100 mg PO DAILY [facility] Stop: 08/18/18 08:59 Last Admin: 06/24/18 08:51 Dose: 100 mg Glucagon (Glucagen) 1 mg IM PRN PRN PRN Reason: Blood Glucose less than 70 Stop: 08/17/18 22:04 Insulin Glargine (Lantus Insulin) 30 units SUBQ QAM [facility] Stop: 08/18/18 08:59 Last Admin: 06/24/18 10:59 Dose: Not Given Insulin Human Lispro (Humalog Insulin Sliding Scale) 0 units SUBQ ACHS [facility]; Protocol Stop: 08/18/18 07:29 Last Admin: 06/24/18 08:45 Dose: Not Given Lorazepam (Ativan) 1 mg IVP Q4H PRN; Protocol PRN Reason: Agitation Stop: 08/17/18 22:08 Paroxetine HCl (Paxil) 20 mg PO DAILY [facility]; Protocol Stop: 08/18/18 08:59 Last Admin: 06/24/18 08:50 Dose: 20 mg Risperidone (Risperdal) 0.5 mg PO BID [facility]; Protocol Stop: 08/18/18 16:59 Last Admin: 06/24/18 08:51 Dose: 0.5 mg Sevelamer Carbonate (Renvela) 2,400 mg PO TIDWM [facility] Stop: 08/20/18 07:59 Last Admin: 06/24/18 12:44 Dose: 2,400 mg Trazodone HCl (Desyrel) 50 mg PO HS [facility]; Protocol Stop: 08/19/18 20:59 Last Admin: 06/23/18 21:49 Dose: Not Given General: Alert, No acute distress HEENT: Atraumatic, Mucous membr. 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 fib Hep C - Plan Plan: Lab - Result Diagrams 06/20/18 06:15 06/20/18 06:15 Current Medications Acetaminophen (Tylenol) 650 mg PO Q12H PRN PRN Reason: Pain (Mild) Stop: 08/17/18 22:02 Amlodipine Besylate (Norvasc) 10 mg PO DAILY [facility] Stop: 08/18/18 08:59 Last Admin: 06/20/18 09:09 Dose: 10 mg Atorvastatin Calcium (Lipitor) 10 mg PO [facility]; Protocol Stop: 08/18/18 20:59 Last Admin: 06/19/18 21:18 Dose: 10 mg Carvedilol (Coreg) 25 mg PO BID [facility] Stop: 08/18/18 08:59 Last Admin: 06/20/18 09:09 Dose: 25 mg Cholecalciferol (Vitamin D3) 1,000 iu PO DAILY [facility] Stop: 08/18/18 08:59 Last Admin: 06/20/18 09:09 Dose: 1,000 iu Dextrose (D50w) 50 ml IVP PRN PRN PRN Reason: Blood Glucose less than 70 Stop: 08/17/18 22:04 Dextrose (Glutose 40%) 18.75 gm PO PRN PRN PRN Reason: Blood Glucose less than 70 Stop: 08/17/18 22:04 Diltiazem HCl (Cardizem Cd) 120 mg PO DAILY [facility] Stop: 08/18/18 08:59 Last Admin: 06/20/18 09:08 Dose: 120 mg Docusate Sodium (Colace) 100 mg PO DAILY [facility] Stop: 08/18/18 08:59 Last Admin: 06/20/18 09:09 Dose: 100 mg Famotidine (Pepcid) 20 mg PO DAILY [facility] Stop: 08/18/18 08:59 Last Admin: 06/20/18 09:08 Dose: 20 mg Fish Oil ([place] 3) 1,000 mg PO DAILY [facility] Stop: 08/18/18 08:59 Last Admin: 06/20/18 09:09 Dose: 1,000 mg Gabapentin (Neurontin) 100 mg PO DAILY [facility] Stop: 08/18/18 08:59 Last Admin: 06/20/18 09:09 Dose: 100 mg Glucagon (Glucagen) 1 mg IM PRN PRN PRN Reason: Blood Glucose less than 70 Stop: 08/17/18 22:04 Albumin Human (Albuminar 25%) 25 gm in 100 mls @ 50 mls/hr IV PRN PRN PRN Reason: BP Support During HD Stop: 06/20/18 23:49 Insulin Glargine (Lantus Insulin) 30 units SUBQ QAM [facility] Stop: 08/18/18 08:59 Last Admin: 06/20/18 09:35 Dose: 30 units Insulin Human Lispro (Humalog Insulin Sliding Scale) 0 units SUBQ ACHS [facility]; Protocol Stop: 08/18/18 07:29 Last Admin: 06/20/18 11:45 Dose: 2 units Lorazepam (Ativan) 1 mg IVP Q4H PRN; Protocol PRN Reason: Agitation Stop: 08/17/18 22:08 Paroxetine HCl (Paxil) 20 mg PO DAILY [facility]; Protocol Stop: 08/18/18 08:59 Last Admin: 06/20/18 09:09 Dose: 20 mg Risperidone (Risperdal) 0.5 mg PO BID [facility]; Protocol Stop: 08/18/18 16:59 Last Admin: 06/20/18 09:09 Dose: 0.5 mg Lab - Result Diagrams 06/23/18 05:50 06/23/18 05:50 pt. scheduled for HD today continue psych meds possible DC plan Nutritional Asmnt/Malnutr-PDOC - Dietary Evaluation Malnutrition Findings (Please click <Entered> for more info): Nutritional Asmnt/Malnutrition Start: 06/23/18 17: 23 Text: Status: Complete Freq: Protocol: Document 06/23/18 17:23 [email or web address] (Rec: 06/23/18 17:41 [email or web address] [id number]) Nutritional Asmnt/Malnutrition Patient General Information Nutritional Screening Moderate Risk Diagnosis renal failure, altered mental status Pertinent Medical Hx/Surgical Hx HTN, DM, dyslipidemia, PUD/ GERD, ESRD on dialysis, afib, hep C, ischemic encephalopathy , anemia Subjective Information Pt seen sitting on chair at time of visit, awake and alert . Food preference provided to RD. Noticed pt has no teeth, but pt denied any chewing/ swallowing problem on current diet. Per EMR, PO intake 100%. Discussed with pt about renal diet restrictions. Current Diet Order/ Nutrition Support renal standard, JUHI Pertinent Medications lipitor, vit D3, colace, pepcid, omega 3, lantus, humalog, renvela Pertinent Labs 06/23 Na 132, Cl 92, BUN 48, Cr 9.1, glucsoe 99, POC 79-115 Nutritional Hx/Data Height 1.75 m Height (Calculated Centimeters) 175.3 Current Weight (lbs) 116.12 kg Weight (Calculated Kilograms) 116.1 Weight (Calculated Grams) 794103.6 [place] Body Weight 160 Body Mass Index (BMI) 37.8 Weight Status Obese GI Symptoms GI Symptoms None Last BM 06/23 Difficult in: None Skin Integrity/Comment: intact Estimated Nutritional Goals BEE in Kcals: Adj wt of IBW Calories/Kcals/Kg 25-30 Kcals Calculated [id number] Protein: Adj wt of IBW Protein g/k-1.2 Protein Calculated 83-100 Fluid: ml per MD Nutritional Problem 1. Problem Problem altered nutrition related labs Etiology ESRD Signs/Symptoms: BUN 48, Cr 9.1 Malnutrition Alert Is there a minimum of two criteria No selected? Query Text:Check all the applicable criteria. A minimum of two criteria are recommended for diagnosis of either severe or non-severe malnutrition. Malnutrition Related to Morbid Obesity Malnutrition related to morbid obesity No Intervention/Recommendation Comments 1. Continue with renal diet as ordered. Adjust protein level to 80g. 2. Monitor PO intake, wt, labs and skin integrity 3. F/U as moderate risk in 3-5 days Expected Outcomes/Goals Expected Outcomes/Goals 1. PO intake to meet at least 75% of nutritional needs. 2. Wt stability, skin to remain intact, labs to approach WNL.
[2018-06-24] MEDS: Apixaban 5 MG TABLET PO SCH (18:41)
== END 2018-06-23 21:30 | DRG 91 ==
LOC: ER 18:51 → GERO2 20:06 → MSI 20:29
PROVIDERS: ADMIT Internal Medicine; ATTEND Internal Medicine
PROC: 5A1D70Z Performance of Urinary Filtration, Intermittent, Less than 6 Hours Per Day (ICD-10-PCS; principal; 2018-06-19)
PROC: 5A1D70Z Performance of Urinary Filtration, Intermittent, Less than 6 Hours Per Day (ICD-10-PCS; 2018-06-20)
PROC: 5A1D70Z Performance of Urinary Filtration, Intermittent, Less than 6 Hours Per Day (ICD-10-PCS; 2018-06-22)
DX: G92 Toxic encephalopathy (principal); N18.6 End stage renal disease; I13.2 Hypertensive heart and chronic kidney disease with heart failure and with stage 5 chronic kidney disease, or end stage renal disease; F33.3 Major depressive disorder, recurrent, severe with psychotic symptoms; G93.1 Anoxic brain damage, not elsewhere classified; I50.40 Unspecified combined systolic (congestive) and diastolic (congestive) heart failure; F23 Brief psychotic disorder; Z99.2 Dependence on renal dialysis; E78.5 Hyperlipidemia, unspecified; B19.20 Unspecified viral hepatitis C without hepatic coma; E11.40 Type 2 diabetes mellitus with diabetic neuropathy, unspecified; E11.22 Type 2 diabetes mellitus with diabetic chronic kidney disease; K21.9 Gastro-esophageal reflux disease without esophagitis; I48.2 Chronic atrial fibrillation; D63.1 Anemia in chronic kidney disease; E66.01 Morbid (severe) obesity due to excess calories; Z68.37 Body mass index [BMI] 37.0-37.9, adult
CPT/HCPCS: 36415-UA; 80048-TC; 80053-TC; 80061-TC; 80320-TC; 80329-TC; 82948-90; 83735-TC; 84100-TC; 84443-TC; 85025-TC; 86592-TC; 93005; J1815; J7030; Z7610